=== PATIENT | male | born 1945 | race Caucasian/White ===

== ENCOUNTER → 2016-05-28 | Outpatient (CLI) | payer OTHER ==
[2016-05-28 16:57] LABS: BUN/CREATININE RATIO 21.9 (6-20); CALCIUM 9.5 mg/dL (8.7-10.7); CREATININE 2.1 mg/dL (0.70-1.50); POTASSIUM 5.4 meq/L (3.8-5.2)
== END ==
LOC: MOB LAB 15:45
DX: N18.3 Chronic kidney disease, stage 3 (moderate) (principal)
CPT/HCPCS: 80048

== ENCOUNTER 2016-07-29 16:43 | Inpatient (IN) | payer OTHER ==
[2016-07-29] MEDS ORDERED: ONDANSETRON 4 MG/2 ML VIAL IVP ONE (16:54)
[2016-07-29] MEDS ORDERED: Sodium Chloride 0.9% 1,000 ML PRIMARY IV ONE ×2 (16:54→17:31)
[2016-07-29] MEDS ORDERED: ACETAMINOPHEN 325 MG TABLET PO ONE (16:54)
--- NOTE | 2016-07-29 17:02 | PDOC ---
Gen Adult / Medical Screen HPI - General Chief Complaint: General Medical Stated Complaint: diarrhea, body aches, lethargy Date Seen by Provider: 07/29/16 Time Seen by Provider: 16:56 Source: POSITIVE: Patient Exam Limitations: POSITIVE: No limitations Nurse's Notes Reviewed & Considered: Yes - Indicators Temperature Between 95 and 101 Degrees: Yes Respirations Between 12 and 20: Yes Blood Pressure Between 100-165 (sys) and 60-100 (tadeo): No (95/52) Pulse Range Between 60-105 (100 for age > 60 years): No (115) Severe Pain (Greater than 5/10 Reported): No Chest or Abdominal Pain: Yes Inability to Walk: No Pt Reports Active High Risk Cond. (TB/Hepatitis/HIV/Chemo): No Abnormal Mental Status: No - History of Present Illness Initial Comments: Patient comes in today with chief complaint of abdominal pain and diarrhea. Patient began to develop generalized abdominal pain on Saturday associated with diarrhea. His diarrhea got worse Saturday. He comes in now because of lethargy , subjective fevers, diarrhea with blood present, and abdominal pain. He denies any sore throat, chest pain, shortness of breath. He does have episodes of rapid heart rate, stating that his heart rate was as high as 145 yesterday. He does have nausea but no vomiting. He has subjective fevers and sweats, with associated chills. He denies any rashes. He does have myalgias. Body Location Affected: REPORTS: Abdomen Timing: REPORTS: Constant, Getting Worse Duration: >24 hours Similar Symptoms Previously: No Recent Care Received: REPORTS: Denies Any Prior Injuries Related to Current Complaint?: No - Patient Home Medications Home Medications: Home Medications Aspirin 81 mg ORAL QD #30 tab 12/18/11 Indomethacin 1 cap PO DAILY PRN cap 12/29/12 Cholecalciferol (Vitamin D3) [Vitamin D3] 1 cap PO DAILY cap 11/09/13 Ferrous Sulfate [Iron] 1 cap PO QD #30 cap 05/12/14 Fluticasone Propionate 15.8 ml NS BID #3 inh 06/27/15 Hydrocodone Bit/Acetaminophen [[place] 5-325 Tablet] 1 - 2 tab PO Q6H PRN #30 tab 06/27/15 Atorvastatin Calcium 1 tab PO QHS #90 tab 05/24/16 Doxazosin Mesylate 1 tab PO QHS #90 tab 05/24/16 Prasugrel HCl [Effient] 1 tab PO QD #90 tab 05/24/16 Allopurinol 1 tab PO QD #90 tab 05/29/16 Amlodipine Besylate 1 tab PO QHS #90 tab 05/29/16 Atenolol 1 tab PO QD #90 tab 05/29/16 Budesonide/Formoterol Fumarate [Symbicort] 2 puff INH BID #3 puff 05/29/16 Ezetimibe [Zetia] 1 tab PO QHS #90 tab 05/29/16 Indapamide 2 tab PO QD #180 tab 05/29/16 Olmesartan Medoxomil [Benicar] 0.5 tab PO QD #45 tab 05/29/16 Sodium Bicarbonate 1 tab PO BID #180 tab 05/29/16 Zolpidem Tartrate [Ambien Cr] 1 tab PO QHS PRN #30 tab 06/11/16 Clonidine 1 patch TRANSDERM WEEKLY #12 patch 07/19/16 Colchicine [Mitigare] 1 cap PO QD #90 cap 07/19/16 Levothyroxine Sodium 1 tab PO QD #90 tab 07/19/16 - Patient Allergies Allergies/Adverse Reactions: Allergies Allergy/AdvReac Type Severity Reaction Status Date / Time GIOVANNI Inhibitors AdvReac Intermediate increases Verified 07/29/16 17:01 creat clopidogrel bisulfate AdvReac Intermediate itching Verified 07/29/16 17:01 [From Plavix] niacin AdvReac Intermediate ITCHING Verified 07/29/16 17:01 Past Medical History - heen HEENT History: Hard of Hearing, Dentures/Partials Cardiovascular History: Hypertension, PVD, Hyperlipidemia Additional Cardiovasular History: SUBCLAVIAN ARTERY STENOSIS (RIGHT , BP'S IN LEFT ARM ONLY). INTERMITTENT CLAUDICATION 2007/ RIGHT ILIAC HIGH GRADE STENOSIS , LEFT IS TOTALLY OCCLUDED. ATHEROSCLEROTIC RENAL ARTERY STENOSI 2006, BILATERAL 80% RIGHT AND 50% LEFT. ANGIOPLASTY ANS STENT TO LEFT RENAL ARTERY IN 2011 Respiratory History: Denies History Gastrointestinal History:  Additional Gastrointestinal History: HX OF POLYPS AND ULCERS. GASTRITIS. 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 TONSILLECTOMY Anesthesia Reactions: No Malignant Hyperthermia: No Significant Family History: Heart disease, Cancer ROS - Limitations ROS Limitations: No Limitations Constitution: REPORTS: Chills, Fever, Diaphoresis Cardiovascular: REPORTS: Heart Racing Respiratory: REPORTS: Denies Resp Symptoms Neurological: REPORTS: Denies Neuro Symptoms Gastrointestinal: REPORTS: Abdominal Pain, Nausea, Diarrhea, Bloody Stools Endocrine: REPORTS: Fatigue Musculoskeletal: REPORTS: Muscle Aches Genitourinary: REPORTS: Denies Symptoms Eyes: REPORTS: Denies Symptoms ENT: REPORTS: Denies Symptoms Skin: REPORTS: Denies Skin Symptoms Lympathic: REPORTS: Denies Lympathic Symptoms Immunologic: POSITIVE: Denies Symptoms Psychiatric: POSITIVE: Denies Psych Symptoms Gen Adult/Medical Screen Exam - General Appearance General Appearance: POSITIVE: Alert, Cooperative, No Evidence of Trauma, Mild Distress - HEENT HEENT: POSITIVE: Head Inspection Nml, Eyes Inspection Nml, Ears Inspection Nml, Nose Inspection Nml, PERRL, EOMI - Pupils Pupil Size: 5 mm: Bilateral - Neck Neck: POSITIVE: Normal Inspection, Thyroid Normal - Respiratory Respiratory: POSITIVE: No Respiratory Distress, Breath Sounds Normal, Chest Non- Tender - Cardiovascular Cardiovascular: POSITIVE: Regular Rate & Rhythm, PMI Normal, Tachycardia, Murmur (+3 pansystolic murmur best heard in the right subclavian region) Murmur: Systolic: Grade 3 - Abdomen Abdomen: Soft: (All Quadrants), No Splenomegaly: (All Quadrants), No Hepatomegaly: (All Quadrants), No Guarding: (All Quadrants), No Rebound: (All Quadrants), No Palpable Pulse: (All Quadrants), No Palpabale Mass: (All Quadrants), Tenderness Noted: (All Quadrants), Hyperactive Bowel Sounds: (All Quadrants) - Neurological / Psychological Mental Status: POSITIVE: Mood Normal, Affect Normal Orientation: POSITIVE: Oriented x 3 - Skin Skin: POSITIVE: Normal Color, Warm, Dry, No Rash - Extremities Extremity: Non-Tender: (All Extremities), Normal ROM: (All Extremities), Normal Inspection: (All Extremities), Pelvis Stable: (All Extremities) Gen Adlt/Medical Scrn Progress - Results Reviewed by me Xrays/CTs/US Reviewed by me: Yes Discussed with Radiologist: Yes Lab Results Reviewed: Yes Lab Results:: Laboratory Results 07/29/16 Range/Units 17:00 WBC 7.96 (4.8-10.8) 10^3/uL RBC 2.61 L (4.70-6.10) 10^6/uL Hgb 7.7 L (14.0-18.0) g/dL Hct 24.4 L (42.0-52.0) % MCV 93.5 H (80-90) FL MCH 29.5 (27-31) PG MCHC 31.6 L (33-37) g/dL RDW Std Deviation 49.9 (39-50) fL RDW Coeff of [place] 15.6 H (11.5-14.5) % Plt Count 246 (140-350) 10*3/uL MPV 9.8 (7.4-12.2) FL Immature Gran % (Auto) 0.3 (0-5) % Neut % (Auto) 70.2 (50-80) % Lymph % (Auto) 20.5 (10-50) % [place] % (Auto) 5.4 (5-15) % Eos % (Auto) 3.0 (0-8) % Baso % (Auto) 0.6 (0-1) % Immature Gran # (Auto) 0.02 10*3/UL Neut # (Auto) 5.59 10*3/UL Lymph # (Auto) 1.63 10*3/uL [place] # (Auto) 0.43 (0.3-0.8) 10*3/UL Eos # (Auto) 0.24 10*3/UL Baso # (Auto) 0.05 10*3/UL WBC Morphology Comment Normal morphology (NORM) Plt Morphology Comment Normal morphology (NORM) RBC Morph Comment Normal morphology (NORM) Sodium 139 (135-145) meq/L Potassium 4.8 (3.8-5.2) meq/L Chloride 111 (98-112) meq/L Carbon Dioxide 14 L (23-33) meq/L Anion Gap 14 (5-20) BUN 93 H (7-22) mg/dL Creatinine 3.1 H (0.70-1.50) mg/dL Estimated GFR [employer] BUN/Creatinine Ratio 30.00 H (6-20) Glucose 144 H (78-110) mg/dL Calculated Osmolality 319.0 H (267-292) mOsm/kg Lactic Acid 2.5 H (0.70-2.10) MMOL/L Calcium 9.5 (8.7-10.7) mg/dL Magnesium 1.6 (1.6-2.4) mg/dL Total Bilirubin 0.4 (0.3-1.2) mg/dL AST 28 (21-57) IU/L ALT 22 (21-72) IU/L Alkaline Phosphatase 88 (38-126) IU/L C-Reactive Protein 0.7 (0.0-0.9) mg/dL Total Protein 6.3 (6.1-8.0) g/dL Albumin 3.5 (3.5-4.8) g/dL Globulin 2.8 (2.50-4.10) g/dL Albumin/Globulin Ratio 1.20 L (1.3-2.0) mg/g - Patient's Progress Pain Medication Addressed: POSITIVE: Yes Re-Examine Time: 19:00 Status: POSITIVE: Improved MDM / ED Course: Patient was examined, an IV started, blood drawn and sent to the lab for study, radiographic examinations were obtained. Patient received a bolus of normal saline 2, 1 L each. He also received oral Tylenol, and Zofran. Next Findings: CBC shows white count is normal hemoglobin is 7.7, comprehensive metabolic panel shows creatinine greater than 3, CT scan shows no acute intra- abdominal or intrapelvic abnormalities. Assessment: #1 GI bleed with associated symptomatic anemia, #2 diarrhea related to #1.. Plan: Admission, consider consultation with surgery for lower GI scope. Patient Care Time - Estimated PCT Patient Care Time (In Minutes): 45 Vital Signs - Recent Vital Signs Vital Signs: Vital Signs (Last 8 hours) Temp Pulse Pulse Pulse Pulse Resp BP 07/29/16 19:16 97.2 F 82 22 139/69 07/29/16 19:14 108 H 105 H 109 H 07/29/16 16:49 96.9 F 113 H 16 BP BP BP Pulse Ox 07/29/16 19:16 92 07/29/16 19:14 146/70 160/73 106/58 07/29/16 16:49 93 - VS Reviewed Vital Signs Reviewed: Yes Discharge Clinical Impression: GI bleed Discharge Disposition: Admit to Inpatient Condition: Stable Follow Up With: MATHEUS ALDANA [Primary Care Provider] - Date Decision to Admit to Inpatient: 07/29/16 Time Decision to Admit to Inpatient: 19:11
[2016-07-29 17:15] LABS: BASOPHILS # (AUTO) 0.05 10*3/UL; BASOPHILS % (AUTO) 0.6 % (0-1); EOSINOPHILS # (AUTO) 0.24 10*3/UL; HEMATOCRIT 24.4 % (42.0-52.0); HEMOGLOBIN 7.7 g/dL (14.0-18.0); LYMPHOCYTES # (AUTO) 1.63 10*3/uL; MEAN CORPUSCULAR HEMOGLOBIN 29.5 PG (27-31); MEAN CORPUSCULAR HGB CONC 31.6 g/dL (33-37); MEAN CORPUSCULAR VOLUME 93.5 FL (80-90); MEAN PLATELET VOLUME 9.8 FL (7.4-12.2); MONOCYTES # (AUTO) 0.43 10*3/UL (0.3-0.8); MONOCYTES % (AUTO) 5.4 % (5-15); NEUTROPHILS # (AUTO) 5.59 10*3/UL; NEUTROPHILS % (AUTO) 70.2 % (50-80); RED BLOOD COUNT 2.61 10^6/uL (4.70-6.10)
[2016-07-29 17:26] LABS: BLOOD UREA NITROGEN 93 mg/dL (7-22); C-REACTIVE PROTEIN 0.7 mg/dL (0.0-0.9); CALCIUM 9.5 mg/dL (8.7-10.7); MAGNESIUM 1.6 mg/dL (1.6-2.4); SERUM ALBUMIN 3.5 g/dL (3.5-4.8)
[2016-07-29 17:43] LABS: PLATELET MORPHOLOGY COMMENT NORMAL MORPHOLOGY (NORM); RBC MORPHOLOGY COMMENT NORMAL MORPHOLOGY (NORM); WBC MORPHOLOGY COMMENT NORMAL MORPHOLOGY (NORM)
--- NOTE | 2016-07-29 18:58 | DI ---
HISTORY: Fever. COMPARISON: 12/12/2007. FINDINGS: PA and lateral views of the chest are obtained, and demonstrate clear lungs. The cardiome diastinum and bony thorax are unremarkable. IMPRESSION: 1. Normal chest.
--- NOTE | 2016-07-29 18:58 | DI ---
HISTORY: Abdominal pain, diarrhea and renal insufficiency. COMPARISON: 12/12/2007. TECHNIQUE: Multiple helically acquired CT images were obtained through the abdomen and pelvis withou t contrast. FINDINGS: Examination demonstrates clear lung bases. The liver, gallbladder, spleen, adrenals and pancreas are unremarkable. There is some renal cortical thinning noted without hydronephrosis. The urinary bladder is unremarkable. A few colonic diverticula are noted without evidence of acute diverticulitis. There is no free air n or free fluid. There is no mesenteric nor retroperitoneal lymphadenopathy. Diffuse peripheral vascular disease is noted. Degenerative disc disease is seen predominantly at the L5/S1 level. IMPRESSION: 1. No acute intra-abdominal pathology.
--- NOTE | 2016-07-29 20:11 | PDOC ---
History and Physical - History of Present Illness Date and Time of Service: 07/29/2016 8:30 PM Chief Complaint: Dizziness, diarrhea with black stool and reflux that started 2 days ago History of Present Illness: This is a 71 years old male with medical history significant for history of hypertension, history of gout, chronic renal failure stage III, peripheral vascular disease and multiple stents to the lower limb arteries and history of right and left carotid endarterectomies, history of previous TIAs, history of previous colonic polyp who came into the hospital with history of pain in the abdomen described as reflux, vomiting and diarrhea with black stools and some fresh blood that started on Saturday. He said he went multiple times on Saturday also vomited multiple times was dark yesterday said he stayed in bed, today is been feeling dizzy lightheaded when he stands up and because he's not feeling right and fatigued he came into the ER evaluation in the ER revealed a hemoglobin of 7.7, worsening renal failure and he was positive for guaiac stool. He was given some fluid and was admitted. He feels better he said compared to when he came in. Last time he ate he said was night. He did try to drink some fluids. But he said that cold water did not help and he vomited after that. But he did manage to keep some warm water today. He denied chest pain, shortness of breath. He denied history of ulcers before but he did say that he had some blood transfusion before and was told he was anemic at that time. He was supposed to have a repeat colonoscopy March last year but he did not go to his appointment for no clear reason. He said last week he did having some pain in his gum so he went to the pharmacy and they gave him some medication with aspirin in it she said that he doesn't know the name and he 's been taking it once a day including today. He did not take the rest of his medication today or yesterday. Past Medical History Medical History: 1. Hypertension. 2. Chronic renal failure stage III. 3. History of gout. 4. Peripheral vascular disease status post stenting of the left external and internal iliac arteries and right femoral artery in 2012. Stent in the right anterior tibial and tibioperoneal arteries in 2013, he had interventions to the left renal, left superficial femoral artery and left external iliac artery in 2015. 5. Left renal stenting in 2011. 6. History of TIA. 7. Hearing loss on the left ear. 8. Hyperlipidemia. 9. History of bleeding esophageal ulcer. 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 History of left carotid endarterectomy 2006, history of for right carotid endarterectomy 2007. 2. Left renal stent. 3. Peripheral vascular disease and multiple stenting. 4. History of colonic polyp removal. Pertinent Family History: Father at age 70 of [place], mother from lung cancer. Tobacco Use: Former Smoker Substance Use Type: None Alcohol Use: None Medication / Allergies Home Medications: Home Medications Medication Instructions Recorded Confirmed Type Aspirin 81 mg ORAL QD #30 tab 12/18/11 07/29/16 History Indomethacin 1 cap PO DAILY PRN cap 12/29/12 07/29/16 History Cholecalciferol (Vitamin D3) 1 cap PO DAILY cap 11/09/13 07/29/16 History [Vitamin D3] Ferrous Sulfate [Iron] 1 cap PO QD #30 cap 05/12/14 07/29/16 Clinic Fluticasone Propionate 15.8 ml NS BID #3 inh 06/27/15 07/29/16 Clinic Hydrocodone Bit/Acetaminophen 1 - 2 tab PO Q6H PRN #30 tab 06/27/15 07/29/16 Clinic [[place] 5-325 Tablet] Atorvastatin Calcium 1 tab PO QHS #90 tab 05/24/16 07/29/16 Clinic Doxazosin Mesylate 1 tab PO QHS #90 tab 05/24/16 07/29/16 Clinic Prasugrel HCl [Effient] 1 tab PO QD #90 tab 05/24/16 07/29/16 Clinic Allopurinol 1 tab PO QD #90 tab 05/29/16 07/29/16 Clinic Amlodipine Besylate 1 tab PO QHS #90 tab 05/29/16 07/29/16 Clinic Atenolol 1 tab PO QD #90 tab 05/29/16 07/29/16 Clinic Budesonide/Formoterol Fumarate 2 puff INH BID #3 puff 05/29/16 07/29/16 Clinic [Symbicort] Ezetimibe [Zetia] 1 tab PO QHS #90 tab 05/29/16 07/29/16 Clinic Indapamide 2 tab PO QD #180 tab 05/29/16 07/29/16 Clinic Olmesartan Medoxomil [Benicar] 0.5 tab PO QD #45 tab 05/29/16 07/29/16 Clinic Sodium Bicarbonate 1 tab PO BID #180 tab 05/29/16 07/29/16 Clinic Zolpidem Tartrate [Ambien Cr] 1 tab PO QHS PRN #30 tab 06/11/16 07/29/16 Clinic Clonidine 1 patch TRANSDERM WEEKLY #12 patch 07/19/16 07/29/16 Clinic Colchicine [Mitigare] 1 cap PO QD #90 cap 07/19/16 07/29/16 Clinic Levothyroxine Sodium 1 tab PO QD #90 tab 07/19/16 07/29/16 Clinic Allergies/Adverse Reactions: Allergies Allergy/AdvReac Type Severity Reaction Status Date / Time GIOVANNI Inhibitors AdvReac Intermediate increases Verified 07/29/16 21:14 creat clopidogrel bisulfate AdvReac Intermediate itching Verified 07/29/16 21:14 [From Plavix] niacin AdvReac Intermediate ITCHING Verified 07/29/16 21:14 Review of Systems - Review of Systems All Systems: Reviewed & No Additional Complaints Except as Stated Exam - Vitals Vital Signs: Vital Signs Temperature 97.2 F Temperature Source Temporal Artery Scan Pulse Rate [Pulse Oximeter] 82 Respiratory Rate 22 Blood Pressure [Left Arm] 139/69 Pulse Ox 92 Oxygen Delivery Method Room Air - General General Appearance: POSITIVE: No Acute Distress, Cooperative - Head Head Exam: POSITIVE: Normal Inspection, Ecchymosis - Eye Additional Eye Exam Details: Pale conjunctiva - ENT ENT Exam: POSITIVE: Normal Exam - Neck Neck Exam: POSITIVE: Normal Inspection - Respiratory Respiratory Exam: POSITIVE: Clear to Auscultation - Bilaterally - Cardiovascular Cardiovascular Exam: POSITIVE: RRR, Systolic Murmur - GI/Abdominal GI/Abdominal Exam: POSITIVE: Normal Bowel Sounds, Non Tender, Non Distended, Soft - Rectal Rectal Exam: POSITIVE: Deferred - External Exam: POSITIVE: Deferred - Extremities Extremities Exam: POSITIVE: Normal Inspection - Back Back Exam: POSITIVE: Normal Inspection - Neurological Neurological Exam: POSITIVE: Alert, Oriented x 3, CN II-XII Intact, Moves All Extremities Equally - Psychiatric Psychiatric Exam: POSITIVE: Normal Affect - Integumentary Integumentary Exam: POSITIVE: Dry, Pallor Results - Labs CBC and BMP: 07/29/16 17:00 07/29/16 17:00 - Imaging Status: Report Reviewed by Me (Chest x-ray normal, CT of the abdomen showed no acute intra-abdominal pathology) Assessment and Plan - Patient Problems (1) GI bleed Current Visit: Yes Status: Acute Comment: I think probably secondary to the medication especially with the additional aspirin that he's been taking that caused likely an upper GI bleed. He is normally on the baby aspirin and effient. Last time he took those was Saturday morning. Will continue to hold those medication. Will put him on Protonix loading dose and then Protonix drip. We'll transfuse him with 2 units of blood I already spoke with Dr. Khan he is planning on doing EGD tomorrow. (2) Acute on chronic renal failure Current Visit: Yes Status: Acute Comment: This is secondary to GI bleed, as I said we will give him blood in addition to fluid will repeat his labs in the morning. Hold his diuretics and blood pressure medications for now. (3) Hypothyroidism Current Visit: Yes Status: Acute Comment: Same medications (4) History of gout Current Visit: Yes Status: Acute Comment: Same medications (5) Hypertension Current Visit: Yes Status: Acute Comment: We'll hold his blood pressure medication and see what happens to his blood pressure then decide about timing to restart his medications (6) Metabolic acidosis, normal anion gap (NAG) Current Visit: Yes Status: Acute Comment: Probably secondary to renal failure and diarrhea, he is is normally on sodium bicarbonate will resume that, hopefully with the fluid that would help improve his kidney function and improve the acidosis Photo / Body Diagrams - Uploaded Photos Uploaded Photos:
[2016-07-29] MEDS ORDERED: LIDOCAINE W/ SODIUM BICARB 0.5 ML SYR SUBD PRN (20:35)
[2016-07-29] MEDS ORDERED: ONDANSETRON 4 MG/2 ML VIAL IVP PRN (20:35)
[2016-07-29] MEDS ORDERED: NORMAL SALINE 10 ML SYRINGE FLUSH IVP PRN (20:35)
[2016-07-29] MEDS ORDERED: PANTOPRAZOLE IVP ONE (20:38)
[2016-07-29] MEDS ORDERED: NORMAL SALINE FLUSH IVP ONE (20:38)
[2016-07-29] MEDS ORDERED: Sodium Chloride 0.9% 500 ML PRIMARY IV ONE (20:41)
[2016-07-29 21:35] LABS: BILIRUBIN,URINE NEGATIVE (NEG); COLOR,URINE YELLOW; GLUCOSE, URINE (UA) NEGATIVE (NEG); NITRATE,URINE NEGATIVE (NEG); OCCULT BLOOD,URINE Trace-lysed (NEG); PH,URINE 5.5 (5.0-8.5); PROTEIN,URINE 30 mg/dl (NEG); UROBILINOGEN,URINE 0.2 EU/dL (0.2)
[2016-07-29 21:48] LABS: CLARITY,URINE CLEAR (CLEAR)
[2016-07-29 21:50] LABS: BACTERIA,URINE FEW; RBC,URINE 0-1 /hpf; URINE SAMPLE TYPE CLEAN CATCH URINE
[2016-07-29] MEDS: Sodium Chloride 0.9% 1,000 ML PRIMARY IV SCH (21:51)
[2016-07-30] MEDS ORDERED: ACETAMINOPHEN 325 MG TABLET PO PRN (00:02)
[2016-07-30] MEDS: Sodium Chloride 0.9% 1,000 ML PRIMARY IV SCH ×2 (05:11→06:48)
[2016-07-30] MEDS ORDERED: LEVOTHYROXINE 25 MCG TABLET PO SCH (05:30)
[2016-07-30] MEDS ORDERED: PANTOPRAZOLE IV 40 MG VIAL ONE ×2 (07:20→07:27)
[2016-07-30] MEDS ORDERED: Sodium Chloride 0.9% 100 ML IV ONE ×2 (07:20→07:27)
[2016-07-30 07:31] LABS: BASOPHILS # (AUTO) 0.04 10*3/UL; BASOPHILS % (AUTO) 0.5 % (0-1); EOSINOPHILS % (AUTO) 3.7 % (0-8); HEMATOCRIT 27.1 % (42.0-52.0); HEMOGLOBIN 8.7 g/dL (14.0-18.0); LYMPHOCYTES # (AUTO) 1.34 10*3/uL; MEAN CORPUSCULAR HEMOGLOBIN 29.2 PG (27-31); MEAN CORPUSCULAR HGB CONC 32.1 g/dL (33-37); MEAN CORPUSCULAR VOLUME 90.9 FL (80-90); MEAN PLATELET VOLUME 9.8 FL (7.4-12.2); MONOCYTES # (AUTO) 0.78 10*3/UL (0.3-0.8); MONOCYTES % (AUTO) 9.7 % (5-15); NEUTROPHILS # (AUTO) 5.57 10*3/UL; NEUTROPHILS % (AUTO) 69.1 % (50-80); PLATELET MORPHOLOGY COMMENT NORMAL MORPHOLOGY (NORM); RBC MORPHOLOGY COMMENT NORMAL MORPHOLOGY (NORM); RED BLOOD COUNT 2.98 10^6/uL (4.70-6.10); WBC MORPHOLOGY COMMENT NORMAL MORPHOLOGY (NORM)
[2016-07-30 07:51] LABS: BLOOD UREA NITROGEN 79 mg/dL (7-22); CALCIUM 8.9 mg/dL (8.7-10.7)
--- NOTE | 2016-07-30 08:02 | PDOC(PROG) ---
Date and Time of Service: 07/30/2016 7:55 AM Interval History: Subjective Patient feels better, denying pain, no more bowel movements, no vomiting and no dizziness. Objective : Data - Labs CBC and BMP: 07/30/16 07:20 07/30/16 07:20 Labs - Last 24 Hours: Laboratory Results 07/29/16 07/29/16 07/30/16 Range/Units 20:41 21:33 07:20 WBC 8.06 (4.8-10.8) 10^3/uL RBC 2.98 L (4.70-6.10) 10^6/uL Hgb 8.7 L (14.0-18.0) g/dL Hct 27.1 L (42.0-52.0) % MCV 90.9 H (80-90) FL MCH 29.2 (27-31) PG MCHC 32.1 L (33-37) g/dL RDW Std Deviation 53.1 H (39-50) fL RDW Coeff of [place] 16.8 H (11.5-14.5) % Plt Count 180 (140-350) 10*3/uL MPV 9.8 (7.4-12.2) FL Immature Gran % (Auto) 0.4 (0-5) % Neut % (Auto) 69.1 (50-80) % Lymph % (Auto) 16.6 (10-50) % [place] % (Auto) 9.7 (5-15) % Eos % (Auto) 3.7 (0-8) % Baso % (Auto) 0.5 (0-1) % Immature Gran # (Auto) 0.03 10*3/UL Neut # (Auto) 5.57 10*3/UL Lymph # (Auto) 1.34 10*3/uL [place] # (Auto) 0.78 (0.3-0.8) 10*3/UL Eos # (Auto) 0.30 10*3/UL Baso # (Auto) 0.04 10*3/UL WBC Morphology Comment Normal morphology (NORM) Plt Morphology Comment Normal morphology (NORM) RBC Morph Comment Normal morphology (NORM) Sodium 142 (135-145) meq/L Potassium 4.7 (3.8-5.2) meq/L Chloride 117 H (98-112) meq/L Carbon Dioxide 15 L (23-33) meq/L Anion Gap 10 (5-20) BUN 79 H (7-22) mg/dL Creatinine 2.5 H (0.70-1.50) mg/dL Estimated GFR Animal Science Professor BUN/Creatinine Ratio 31.60 H (6-20) Glucose 85 (78-110) mg/dL Calculated Osmolality 316.0 H (267-292) mOsm/kg Calcium 8.9 (8.7-10.7) mg/dL Ur Collection Type Clean catch urine Urine Color Yellow Urine Clarity Clear (CLEAR) Urine pH 5.5 (5.0-8.5) Ur Specific [place] 1.015 (1.005-1.030) Urine Protein 30 (NEG) mg/dl Urine Glucose (UA) Negative (NEG) mg/dL Urine Ketones Negative (NEG) Urine Occult Blood Trace-lysed H (NEG) Urine Nitrate Negative (NEG) Urine Bilirubin Negative (NEG) Urine Urobilinogen 0.2 (0.2) EU/dL Ur Leukocyte Esterase Negative (NEG) Urine RBC 0-1 (NONE) /hpf Urine WBC None (NONE) Ur Squamous Epith Cells None (NONE) Ur Renal Epithelial Cell None (NONE) Urine Crystals None Urine Bacteria Few (NONE) Urine Casts None (NONE) Urine Mucus Rare (NONE) Urine Trichomonas None (NONE) Urine Yeast None (NONE) Ur Culture Indicated? Culture not set Blood Type O POSITIVE Antibody Screen Negative Crossmatch See Detail Objective : Exam - General General Appearance: No Acute Distress, Cooperative, Obese - Head Head Exam: Normal Inspection, Atraumatic - Eye Eye Exam: Normal Appearance - ENT ENT Exam: Normal Exam - Neck Neck Exam: Normal Inspection - Respiratory Respiratory Exam: Clear to Auscultation - Bilaterally - Cardiovascular Cardiovascular Exam: RRR - GI/Abdominal GI/Abdominal Exam: Normal Bowel Sounds, Non Tender, Soft - Rectal Rectal Exam: Deferred - External Exam: Deferred - Extremities Extremities Exam: Normal Inspection - Back Back Exam: Normal Inspection - Neurological Neurological Exam: Alert, Oriented x 3, CN II-XII Intact, Speech Intact / Clear , Moves All Extremities Equally - Psychiatric Psychiatric Exam: Normal Affect - Integumentary Integumentary Exam: Normal Color Assessment and Plan - Patient Problems (1) GI bleed Current Visit: Yes Status: Acute Comment: Continue Protonix drip, his hemoglobin is 8.7, I think will repeat it again and then will decide if we need to transfuse him. (2) Acute on chronic renal failure Current Visit: Yes Status: Acute Comment: His creatinine is improving, I think we'll continue with IV fluids but because his chloride is rising maybe will switch him D5/half NS instead of the NS. (3) Hypothyroidism Current Visit: Yes Status: Acute Comment: Same med (4) History of gout Current Visit: Yes Status: Acute Comment: Same med (5) Hypertension Current Visit: Yes Status: Acute Comment: We'll continue holding his blood pressure medication except restarting the atenolol (6) Metabolic acidosis, normal anion gap (NAG) Current Visit: Yes Status: Acute Comment: Restarted the sodium bicarbonate. Will switch to D5/ half NS instead of the NS and see whether that would help with acidosis Photo / Body Diagrams - Uploaded Photos Uploaded Photos:
[2016-07-30] MEDS ORDERED: D5-1/2NS 1,000 ML PRIMARY IV SCH (08:45)
[2016-07-30] MEDS ORDERED: BUDESONIDE INH SCH (09:00)
[2016-07-30] MEDS ORDERED: FORMOTEROL FUMARATE INH SCH (09:00)
[2016-07-30] MEDS ORDERED: Sodium Bicarbonate Tab 650 MG TAB PO SCH (09:00)
[2016-07-30] MEDS ORDERED: FLUTICASONE PROPIONATE 16 GRAM (120 SPRAYS / BOTTLE) ENOS SCH (09:00)
[2016-07-30] MEDS ORDERED: ATENOLOL 25 MG TABLET PO SCH (09:00)
[2016-07-30] MEDS ORDERED: ALLOPURINOL 300 MG TABLET PO SCH (09:00)
[2016-07-30] MEDS ORDERED: fentaNYL Inj 100 MCG/2 ML VIAL ONE (09:47)
[2016-07-30] MEDS ORDERED: LIDOCAINE 2% VISCOUS(20 MG/1 ML) - 15 ML UD CUP PO ONE (09:47)
[2016-07-30] MEDS ORDERED: LIDOCAINE HCL/PF 2% (20 MG/ML) - 5 ML SYRINGE ONE (09:47)
[2016-07-30] MEDS ORDERED: MIDAZOLAM 5 MG/1 ML ONE (09:47)
--- NOTE | 2016-07-30 10:15 | GEN.OPNOTE ---
EGD Operative Note Surgery Date: 07/30/16 Preoperative Diagnosis: Upper GI bleed Postoperative Diagnosis: Upper GI bleed Procedure: Esophagogastroduodenoscopy Surgeon: Yo Khan MD Anesthesia Provider: Raghu Mclaughlin CRNA Anesthesia Type: MAC Indications: Patient has acute gastrointestinal hemorrhage. He's been having melanotic stools since July 27. Patient is BUN is up to 92. He has known chronic renal failure. Findings: Esophagus: Olympus video EGD scope into the posterior pharynx. Is guided into the upper esophagus under direct visualization. His esophagus appeared be normal. GE Junction : [place] 40 cm from incisors Fundus : Scope was retroflexed on itself revealing the fundus I do not see any abnormal pathology Body : No ulcers tumors or polyps Prepyloric : Prepyloric area had no ulcers tumors or polyps Small Intestine : First and second portion of the duodenum showed some mild inflammatory changes. I cannot see any ulcerations. In the third and fourth portion of the duodenum there was fresh blood. I did not see any ulcerations. I was limited because I could not advance the scope any further to see if there is any source of the blood. A lubricated flexible upper endoscope was inserted and passed through the esophagus and stomach into the duodenum. Additional Details: At this point I think the patient is bleeding from the third or fourth portion of the duodenum. This blood I see in the duodenum could be refluxing up from further down in the GI tract. I would recommend that we transfer him to a larger facility where they can potentially do arteriogram and localized the bleeding. Also he may need a place that can do a pediatric colonoscope to view the bleeding and potentially stop it. None of these available at our facility.
[2016-07-30 10:58] VITALS: RESP 8; TEMP 98.4
--- NOTE | 2016-07-30 10:58 | DCSUMMARY ---
Hospitalization Summary Admit Date: 07/29/16 Discharge Date: 07/30/16 Hospital Course: Transfer diagnosis 1. Upper GI bleed source unclear 2. Acute on chronic renal failure 3. History of hypertension 4. History of gout 5. History of peripheral vascular disease with multiple stents 6. History of TIA 7. Hyperlipidemia 8. Hypothyroidism 9. History of tubulovillous adenoma 10. History of left renal stent 11. History of previous endarterectomies Hospital course This is a 71 years old male with medical history significant for history of hypertension, history of gout, chronic renal failure stage III, peripheral vascular disease with multiple stent to the lower limb arteries and history of right and left carotid endarterectomy, history of previous TIAs, history of previous colonic polyp who came into the hospital with history of pain in the abdomen described as reflux, vomiting and diarrhea with black stool and some fresh blood that started on Saturday he said he went multiple times on Saturday and also vomited multiple times and it was dark in color. On Saturday he said he stayed in bed, and on the day of admission he was feeling dizzy, lightheaded when he stands up and because of that he came into the ER he was found to be in worsening renal failure with a hemoglobin of 7.7 and he was positive for guaiac stool. Was given fluids and was admitted. CT abdomen was negative for intra- abdominal pathology When I saw him he looked pale but he was feeling better after the fluid boluses. We put him on Protonix drip and transfused with 2 units of blood. His hemoglobin posttransfusion was 8.7. He did report that he was taking extra aspirin [id number] because he was having gum pain in addition to being on the baby aspirin and effient which he last took was Saturday. Today he did have an EGD done which showed fresh blood in the third and fourth portion of the duodenum no ulceration were found. Dr. Khan suggested that I transfer the patient either for an angiography or an evaluation by GI with a pediatric colonoscopy. I spoke with Dr. Bowie and Dr. Graham and the copper miner at [facility] and they accepted the patient and the patient will be transferred. I did discuss that with the patient and agreed on transfer. Laboratory Results 07/29/16 07/29/16 07/29/16 Range/Units 17:00 20:41 21:33 WBC 7.96 (4.8-10.8) 10^3/uL RBC 2.61 L (4.70-6.10) 10^6/uL Hgb 7.7 L (14.0-18.0) g/dL Hct 24.4 L (42.0-52.0) % MCV 93.5 H (80-90) FL MCH 29.5 (27-31) PG MCHC 31.6 L (33-37) g/dL RDW Std Deviation 49.9 (39-50) fL RDW Coeff of Dee Dee 15.6 H (11.5-14.5) % Plt Count 246 (140-350) 10*3/uL MPV 9.8 (7.4-12.2) FL Immature Gran % (Auto) 0.3 (0-5) % Neut % (Auto) 70.2 (50-80) % Lymph % (Auto) 20.5 (10-50) % Steele % (Auto) 5.4 (5-15) % Eos % (Auto) 3.0 (0-8) % Baso % (Auto) 0.6 (0-1) % Immature Gran # (Auto) 0.02 10*3/UL Neut # (Auto) 5.59 10*3/UL Lymph # (Auto) 1.63 10*3/uL Steele # (Auto) 0.43 (0.3-0.8) 10*3/UL Eos # (Auto) 0.24 10*3/UL Baso # (Auto) 0.05 10*3/UL WBC Morphology Comment Normal morphology (NORM) Plt Morphology Comment Normal morphology (NORM) RBC Morph Comment Normal morphology (NORM) Sodium 139 (135-145) meq/L Potassium 4.8 (3.8-5.2) meq/L Chloride 111 (98-112) meq/L Carbon Dioxide 14 L (23-33) meq/L Anion Gap 14 (5-20) BUN 93 H (7-22) mg/dL Creatinine 3.1 H (0.70-1.50) mg/dL Estimated GFR Print Binding And Finishing Worker BUN/Creatinine Ratio 30.00 H (6-20) Glucose 144 H (78-110) mg/dL Calculated Osmolality 319.0 H (267-292) mOsm/kg Lactic Acid 2.5 H (0.70-2.10) MMOL/L Calcium 9.5 (8.7-10.7) mg/dL Magnesium 1.6 (1.6-2.4) mg/dL Total Bilirubin 0.4 (0.3-1.2) mg/dL AST 28 (21-57) IU/L ALT 22 (21-72) IU/L Alkaline Phosphatase 88 (38-126) IU/L C-Reactive Protein 0.7 (0.0-0.9) mg/dL Total Protein 6.3 (6.1-8.0) g/dL Albumin 3.5 (3.5-4.8) g/dL Globulin 2.8 (2.50-4.10) g/dL Albumin/Globulin Ratio 1.20 L (1.3-2.0) mg/g Ur Collection Type Clean catch urine Urine Color Yellow Urine Clarity Clear (CLEAR) Urine pH 5.5 (5.0-8.5) Ur Specific [place] 1.015 (1.005-1.030) Urine Protein 30 (NEG) mg/dl Urine Glucose (UA) Negative (NEG) mg/dL Urine Ketones Negative (NEG) Urine Occult Blood Trace-lysed H (NEG) Urine Nitrate Negative (NEG) Urine Bilirubin Negative (NEG) Urine Urobilinogen 0.2 (0.2) EU/dL Ur Leukocyte Esterase Negative (NEG) Urine RBC 0-1 (NONE) /hpf Urine WBC None (NONE) Ur Squamous Epith Cells None (NONE) Ur Renal Epithelial Cell None (NONE) Urine Crystals None Urine Bacteria Few (NONE) Urine Casts None (NONE) Urine Mucus Rare (NONE) Urine Trichomonas None (NONE) Urine Yeast None (NONE) Ur Culture Indicated? Culture not set Blood Type O POSITIVE Antibody Screen Negative Crossmatch See Detail 07/30/16 Range/Units 07:20 WBC 8.06 (4.8-10.8) 10^3/uL RBC 2.98 L (4.70-6.10) 10^6/uL Hgb 8.7 L (14.0-18.0) g/dL Hct 27.1 L (42.0-52.0) % MCV 90.9 H (80-90) FL MCH 29.2 (27-31) PG MCHC 32.1 L (33-37) g/dL RDW Std Deviation 53.1 H (39-50) fL RDW Coeff of Dee Dee 16.8 H (11.5-14.5) % Plt Count 180 (140-350) 10*3/uL MPV 9.8 (7.4-12.2) FL Immature Gran % (Auto) 0.4 (0-5) % Neut % (Auto) 69.1 (50-80) % Lymph % (Auto) 16.6 (10-50) % Steele % (Auto) 9.7 (5-15) % Eos % (Auto) 3.7 (0-8) % Baso % (Auto) 0.5 (0-1) % Immature Gran # (Auto) 0.03 10*3/UL Neut # (Auto) 5.57 10*3/UL Lymph # (Auto) 1.34 10*3/uL Steele # (Auto) 0.78 (0.3-0.8) 10*3/UL Eos # (Auto) 0.30 10*3/UL Baso # (Auto) 0.04 10*3/UL WBC Morphology Comment Normal morphology (NORM) Plt Morphology Comment Normal morphology (NORM) RBC Morph Comment Normal morphology (NORM) Sodium 142 (135-145) meq/L Potassium 4.7 (3.8-5.2) meq/L Chloride 117 H (98-112) meq/L Carbon Dioxide 15 L (23-33) meq/L Anion Gap 10 (5-20) BUN 79 H (7-22) mg/dL Creatinine 2.5 H (0.70-1.50) mg/dL Estimated GFR Print Binding And Finishing Worker BUN/Creatinine Ratio 31.60 H (6-20) Glucose 85 (78-110) mg/dL Calculated Osmolality 316.0 H (267-292) mOsm/kg Lactic Acid (0.70-2.10) MMOL/L Calcium 8.9 (8.7-10.7) mg/dL Magnesium (1.6-2.4) mg/dL Total Bilirubin (0.3-1.2) mg/dL AST (21-57) IU/L ALT (21-72) IU/L Alkaline Phosphatase (38-126) IU/L C-Reactive Protein (0.0-0.9) mg/dL Total Protein (6.1-8.0) g/dL Albumin (3.5-4.8) g/dL Globulin (2.50-4.10) g/dL Albumin/Globulin Ratio (1.3-2.0) mg/g Ur Collection Type Urine Color Urine Clarity (CLEAR) Urine pH (5.0-8.5) Ur Specific [place] (1.005-1.030) Urine Protein (NEG) mg/dl Urine Glucose (UA) (NEG) mg/dL Urine Ketones (NEG) Urine Occult Blood (NEG) Urine Nitrate (NEG) Urine Bilirubin (NEG) Urine Urobilinogen (0.2) EU/dL Ur Leukocyte Esterase (NEG) Urine RBC (NONE) /hpf Urine WBC (NONE) Ur Squamous Epith Cells (NONE) Ur Renal Epithelial Cell (NONE) Urine Crystals Urine Bacteria (NONE) Urine Casts (NONE) Urine Mucus (NONE) Urine Trichomonas (NONE) Urine Yeast (NONE) Ur Culture Indicated? Blood Type Antibody Screen Crossmatch Discharge instruction Diet nothing by mouth Activity bedrest Medications Active Medications Acetaminophen (Tylenol) 650 mg PO Q6H PRN PRN Reason: Pain Allopurinol (Zyloprim) 300 mg PO DAILY [facility] Last Admin: 07/30/16 10:56 Dose: Not Given Atorvastatin Calcium (Lipitor) 80 mg PO BEDTIME TRAV Ezetimibe (Zetia) 10 mg PO BEDTIME [facility] Fluticasone Propionate (Flonase Nasal Gregory 0.05%) 1 sprays ARUNA BID [facility] Last Admin: 07/30/16 10:56 Dose: Not Given Sodium Chloride (Normal Saline 0.9%) 25 mls @ 200 mls/hr IV .Post Infusion PRN PRN Reason: No Primary IV for Flush ONLY Pantoprazole Sodium 80 mg/ (Sodium Chloride) 80 mls @ 8 mls/hr IV CONT TRAV PRN Reason: 8 MG/HR Last Admin: 07/30/16 07:32 Dose: 8 mls/hr Sodium Chloride (Normal Saline) 1,000 mls @ 125 mls/hr PRIMARY IV .Q8H [facility] Levothyroxine Sodium (Synthroid) 25 mcg PO DAILY@0530 [facility] Last Admin: 07/30/16 05:30 Dose: 25 mcg Lidocaine HCl (Lidocaine Buffered Inj) 0.5 ml SUBD ONCE PRN PRN Reason: IV Starts Nf-(Budesonide/Formoterol Fumarate [Symbicort 80/4.5] 2 Puff) 2 puff INH BID [facility] Last Admin: 07/30/16 10:56 Dose: Not Given Ondansetron HCl (Zofran Inj) 4 mg IVP Q4H PRN PRN Reason: NAUSEA / VOMITING Sodium Bicarbonate (Sodium Bicarbonate) 650 mg PO BID [facility] Last Admin: 07/30/16 10:56 Dose: Not Given Sodium Chloride (Saline Flush) 5 - 20 ml IVP BID PRN PRN Reason: Flush Follow-up per [facility] post discharge Exam - Vitals Vital Signs: Vital Signs Temperature 97.9 F Temperature Source Temporal Artery Scan Pulse Rate [Apical] 78 Pulse Rate [Pulse Oximeter] 78 Pulse Rate 67 Respiratory Rate 14 Blood Pressure [Left Calf] 121/36 Blood Pressure [Left Arm] 150/74 Blood Pressure 140/81 Pulse Ox 98 Oxygen Flow Rate 1L Oxygen Flow Rate 4 Oxygen Delivery Method Nasal Cannula Height 6 ft Weight 210 lb Patient Problems - Patient Problem List (1) GI bleed Current Visit: Yes Status: Acute (2) Acute on chronic renal failure Current Visit: Yes Status: Acute (3) Hypothyroidism Current Visit: Yes Status: Acute (4) History of gout Current Visit: Yes Status: Acute (5) Hypertension Current Visit: Yes Status: Acute (6) Metabolic acidosis, normal anion gap (NAG) Current Visit: Yes Status: Acute
[2016-07-30] MEDS ORDERED: Sodium Chloride 0.9% 1,000 ML PRIMARY IV SCH (11:00)
[2016-07-30] MEDS ORDERED: ATORVASTATIN 40 MG TABLET PO SCH (21:00)
[2016-07-30] MEDS ORDERED: EZETIMIBE 10 MG TABLET PO SCH (21:00)
== END 2016-07-30 11:34 | disposition short-term general hospital (02) | DRG 378 ==
LOC: ER 16:43 → ICU 19:14
PROVIDERS: ADMIT Internal Medicine; ATTEND Internal Medicine
PROC: 30233N1 Transfusion of Nonautologous Red Blood Cells into Peripheral Vein, Percutaneous Approach (ICD-10-PCS; 2016-07-30)
PROC: 0DJ08ZZ Inspection of Upper Intestinal Tract, Via Natural or Artificial Opening Endoscopic (ICD-10-PCS; principal; 2016-07-30 11:00)
DX: K92.2 Gastrointestinal hemorrhage, unspecified (principal); N17.9 Acute kidney failure, unspecified; E87.2 Acidosis; I10 Essential (primary) hypertension; Z86.73 Personal history of transient ischemic attack (TIA), and cerebral infarction without residual deficits; E78.5 Hyperlipidemia, unspecified; E03.9 Hypothyroidism, unspecified; N18.3 Chronic kidney disease, stage 3 (moderate)
CPT/HCPCS: 36415; 36430; 71020; 74176; 80048; 80053; 81001; 81003; 83605; 83735; 85025; 86140; 86850; 86900; 86901; 86922; 87040; 87804; 99284; J2001; J2250; J2405; J3010; J3490; J7030; J7040; J7050; P9016

== ENCOUNTER → 2016-08-09 | Outpatient (CLI) | payer OTHER ==
--- NOTE | 2016-08-09 11:21 | DI ---
LEFT KNEE, 08/09/2016 10:46 AM: Clinical History: Left knee pain. Previous Exam: 09/29/2014. 4 views are submitted. The AP and tunnel projections are weight bearing views. There is no acute soft tissue, osseous, or joint abnormality. There is at most minimal narrowing of the medial compartment. Reading: Mild degenerative arthritic change of the medial compartment.
== END ==
LOC: ORTHO 11:34
PROVIDERS: ATTEND Physician Assistant
DX: M25.562 Pain in left knee (principal); M17.12 Unilateral primary osteoarthritis, left knee
CPT/HCPCS: 73564

== ENCOUNTER → 2016-08-14 | Outpatient (CLI) | payer OTHER ==
[2016-08-14 17:22] LABS: BASOPHILS # (AUTO) 0.03 10*3/UL; BASOPHILS % (AUTO) 0.4 % (0-1); EOSINOPHILS # (AUTO) 0.22 10*3/UL; EOSINOPHILS % (AUTO) 2.9 % (0-8); HEMATOCRIT 27.1 % (42.0-52.0); HEMOGLOBIN 8.2 g/dL (14.0-18.0); LYMPHOCYTES # (AUTO) 1.43 10*3/uL; MEAN CORPUSCULAR HEMOGLOBIN 27.4 PG (27-31); MEAN CORPUSCULAR HGB CONC 30.3 g/dL (33-37); MEAN CORPUSCULAR VOLUME 90.6 FL (80-90); MONOCYTES # (AUTO) 0.67 10*3/UL (0.3-0.8); MONOCYTES % (AUTO) 8.8 % (5-15); NEUTROPHILS # (AUTO) 5.25 10*3/UL; RED BLOOD COUNT 2.99 10^6/uL (4.70-6.10)
[2016-08-14 17:23] LABS: PLATELET MORPHOLOGY COMMENT NORMAL MORPHOLOGY (NORM); RBC MORPHOLOGY COMMENT NORMAL MORPHOLOGY (NORM); WBC MORPHOLOGY COMMENT NORMAL MORPHOLOGY (NORM)
[2016-08-14 17:37] LABS: BLOOD UREA NITROGEN 55 mg/dL (7-22); BUN/CREATININE RATIO 22.91 (6-20); SERUM ALBUMIN 3.4 g/dL (3.5-4.8)
== END ==
LOC: MOB LAB 16:35
DX: K29.70 Gastritis, unspecified, without bleeding (principal); I10 Essential (primary) hypertension; E78.5 Hyperlipidemia, unspecified
CPT/HCPCS: 36415; 80053; 85025

== ENCOUNTER → 2016-09-17 | Outpatient (CLI) | payer OTHER ==
[2016-09-17 13:21] LABS: BASOPHILS # (AUTO) 0.04 10*3/UL; BASOPHILS % (AUTO) 0.7 % (0-1); EOSINOPHILS % (AUTO) 6.6 % (0-8); HEMOGLOBIN 10.1 g/dL (14.0-18.0); LYMPHOCYTES # (AUTO) 1.38 10*3/uL; MEAN CORPUSCULAR HEMOGLOBIN 28.1 PG (27-31); MEAN CORPUSCULAR HGB CONC 30.6 g/dL (33-37); MEAN CORPUSCULAR VOLUME 91.7 FL (80-90); MEAN PLATELET VOLUME 10.1 FL (7.4-12.2); MONOCYTES # (AUTO) 0.65 10*3/UL (0.3-0.8); MONOCYTES % (AUTO) 10.8 % (5-15); NEUTROPHILS # (AUTO) 3.55 10*3/UL; NEUTROPHILS % (AUTO) 58.8 % (50-80)
[2016-09-17 13:27] LABS: BLOOD UREA NITROGEN 35 mg/dL (7-22); CALCIUM 8.8 mg/dL (8.7-10.7); PHOSPHORUS 3.7 mg/dl (2.4-4.3)
[2016-09-17 13:31] LABS: PLATELET MORPHOLOGY COMMENT NORMAL MORPHOLOGY (NORM); RBC MORPHOLOGY COMMENT NORMAL MORPHOLOGY (NORM); WBC MORPHOLOGY COMMENT NORMAL MORPHOLOGY (NORM)
== END ==
LOC: MOB LAB 11:10
DX: I73.9 Peripheral vascular disease, unspecified (principal); I12.9 Hypertensive chronic kidney disease with stage 1 through stage 4 chronic kidney disease, or unspecified chronic kidney disease; N18.3 Chronic kidney disease, stage 3 (moderate); D64.9 Anemia, unspecified; D12.6 Benign neoplasm of colon, unspecified; I70.1 Atherosclerosis of renal artery; M10.9 Gout, unspecified; I67.9 Cerebrovascular disease, unspecified; E78.5 Hyperlipidemia, unspecified; E55.9 Vitamin D deficiency, unspecified; E03.9 Hypothyroidism, unspecified
CPT/HCPCS: 36415; 80048; 84100; 85025; G0463

== ENCOUNTER → 2016-09-27 | Outpatient (CLI) | payer OTHER ==
--- NOTE | 2016-09-27 15:06 | DI ---
VENOUS DOPPLER ULTRASOUND OF BOTH LOWER EXTREMITIES, 09/27/2016 1:44 PM: Clinical History: Bilateral lower extremity swelling. Previous Exam: None at this facility. Technique: 2D real-time imaging is supplemented with color Doppler ultrasound. Compression and augmen tation maneuvers were performed. The deep venous system from the groin to the popliteal fossa for both legs is normal. The long saphen ous veins are also normal. Reading: Negative venous Doppler ultrasound of both lower extremities for deep vein thrombosis.
== END ==
LOC: US 13:32
DX: R60.0 Localized edema (principal)
CPT/HCPCS: 93970

== ENCOUNTER → 2016-11-09 | Outpatient (CLI) | payer OTHER ==
[2016-11-09 13:08] LABS: BLOOD UREA NITROGEN 39 mg/dL (7-22); BUN/CREATININE RATIO 18.57 (6-20); CALCIUM 9.7 mg/dL (8.7-10.7); URIC ACID 10.3 mg/dl (3.8-8.5)
[2016-11-09 15:22] LABS: HEMATOCRIT 40.1 % (42.0-52.0); HEMOGLOBIN 12.9 g/dL (14.0-18.0); MEAN CORPUSCULAR HEMOGLOBIN 28.6 PG (27-31); MEAN CORPUSCULAR HGB CONC 32.2 g/dL (33-37); MEAN CORPUSCULAR VOLUME 88.9 FL (80-90); RED BLOOD COUNT 4.51 10^6/uL (4.70-6.10)
[2016-11-09 15:23] LABS: BASOPHILS # (AUTO) 0.06 10*3/UL; BASOPHILS % (AUTO) 0.9 % (0-1); EOSINOPHILS # (AUTO) 0.33 10*3/UL; EOSINOPHILS % (AUTO) 4.8 % (0-8); MEAN PLATELET VOLUME 10.3 FL (7.4-12.2); MONOCYTES # (AUTO) 0.76 10*3/UL (0.3-0.8); MONOCYTES % (AUTO) 11.1 % (5-15); NEUTROPHILS # (AUTO) 4.08 10*3/UL; NEUTROPHILS % (AUTO) 59.7 % (50-80); PLATELET MORPHOLOGY COMMENT NORMAL MORPHOLOGY (NORM); RBC MORPHOLOGY COMMENT NORMAL MORPHOLOGY (NORM); WBC MORPHOLOGY COMMENT NORMAL MORPHOLOGY (NORM)
== END ==
LOC: MOB LAB 11:38
DX: I70.1 Atherosclerosis of renal artery (principal); M1A.30X0 Chronic gout due to renal impairment, unspecified site, without tophus (tophi); N18.9 Chronic kidney disease, unspecified; D64.9 Anemia, unspecified
CPT/HCPCS: 36415; 80048; 84550; 85025

== ENCOUNTER 2017-12-09 13:40 | Observation (INO) ==
[2017-12-09] MEDS ORDERED: ONDANSETRON 4 MG/2 ML VIAL IVP ONE (13:52)
[2017-12-09] MEDS ORDERED: Sodium Chloride 0.9% 1,000 ML PRIMARY IV ONE (13:52)
[2017-12-09] MEDS ORDERED: PANTOPRAZOLE IV 40 MG VIAL IVP ONE (13:53)
--- NOTE | 2017-12-09 14:01 | PDOC ---
GI Bleed/Rectal Complaint HPI - General Chief Complaint: GI Bleed / Rectal Pain Stated Complaint: I THINK I'M BLEEDING IN MY INTESTINES Date Seen by Provider: 12/09/17 Time Seen by Provider: 13:50 Source: POSITIVE: Patient Exam Limitations: POSITIVE: No limitations Nurse's Notes Reviewed & Considered: Yes - History of Present Illness Initial Comments: The patient is a 72-year-old male who presents to the emergency department with fatigue, epigastric abdominal pain and black stools. The patient states he's been feeling more tired than usual the past couple of days. He has developed some epigastric abdominal pain and today has had 4 loose stools that were pretty much black. He does have a history of previous GI bleed in July 2016 for which he did receive blood transfusion and eventually required transfer to [facility] for endoscopy and cauterization. He denies fevers or chills or any other associated symptoms. He does not take any blood thinner medicines currently other than aspirin. - Patient Home Medications Home Medications: Home Medications Colchicine [Mitigare] 1 cap PO QD #90 cap 11/09/16 Zolpidem Tartrate [Ambien Cr] 1 tab PO QHS #30 tab 11/09/16 aspirin 81 mg tablet,delayed release 81 mg PO QDAY #30 tab 01/31/17 ferrous sulfate ER 325 mg (65 mg iron) capsule,extended release 325 mg PO QDAY # 30 cap 01/31/17 hydrocodone 5 mg-acetaminophen 325 mg tablet 1 - 2 tab PO Q6H PRN #30 tab olmesartan 20 mg tablet 20 mg PO QDAY #90 tab 04/22/17 levothyroxine 25 mcg tablet 25 mcg PO QDAY #90 tab 05/14/17 rosuvastatin 40 mg tablet 40 mg PO QPM #90 tab 05/14/17 allopurinol 300 mg tablet 300 mg PO QDAY #90 tab 06/06/17 zolpidem ER 12.5 mg tablet,extended release,multiphase 12.5 mg PO QHS #90 tab budesonide-formoterol HFA 80 mcg-4.5 mcg/actuation aerosol inhaler 2 puff INH BID #360 puff 07/10/17 cholecalciferol (vitamin D3) 5,000 unit capsule 5,000 unit PO QDAY #90 cap 07/10 ezetimibe 10 mg tablet 10 mg PO QHS #90 tab 07/10/17 fluticasone 50 mcg/actuation nasal spray,suspension 1 spray INASL QD PRN #3 g prasugrel 10 mg tablet 10 mg PO QDAY #90 tab 07/10/17 sodium bicarbonate 650 mg tablet 1,300 mg PO QDAY #180 tab 07/10/17 pantoprazole 40 mg tablet,delayed release 40 mg PO BID #180 tab 07/17/17 atenolol 25 mg tablet 25 mg PO QDAY #180 tab 08/16/17 furosemide 20 mg tablet 20 mg PO QDAY #30 tab 08/19/17 indapamide 2.5 mg tablet 5 mg PO QDAY #60 tab 11/20/17 colchicine 0.6 mg capsule 0.6 mg PO QDAY #90 cap 12/02/17 - Patient Allergies Allergies/Adverse Reactions: Allergies 3 Allergy/AdvReac Type Severity Reaction Status Date / Time GIOVANNI Inhibitors AdvReac Intermediate increases Verified 12/09/17 13:49 creat clopidogrel bisulfate AdvReac Intermediate itching Verified 12/09/17 13:49 [From Plavix] niacin AdvReac Intermediate ITCHING Verified 12/09/17 13:49 Past Medical History - heen HEENT History: Hard of Hearing, Dentures/Partials Cardiovascular History: Hypertension, PVD, Hyperlipidemia Additional Cardiovasular History: SUBCLAVIAN ARTERY STENOSIS (RIGHT , BP'S IN LEFT ARM ONLY). INTERMITTENT CLAUDICATION 2007/ RIGHT ILIAC HIGH GRADE STENOSIS , LEFT IS TOTALLY OCCLUDED. ATHEROSCLEROTIC RENAL ARTERY STENOSI 2006, BILATERAL 80% RIGHT AND 50% LEFT. ANGIOPLASTY ANS STENT TO LEFT RENAL ARTERY IN 2011 Respiratory History: Denies History Gastrointestinal History: GI Bleed Additional Gastrointestinal History: HX OF POLYPS AND ULCERS. GASTRITIS. 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 Blood Disorders: Anemia Psychiatric History: Denies History History of Sexually Transmitted Diseases: No Male Reproductive History: Denies History Cancer History: Denies History In Past Year Been Physically Harmed or Verbally Threatened: No History of MDRO: No History of Other Communicable Diseases: No Tobacco Use: Former Smoker Alcohol Use: Sober In the Past 12 Months, Have Used or Abuse Any Substance: None Previous Surgical History: Yes Type / Date of Surgery: SEPTEMBER 2011 ANGIOPLASTY/ NOVEMBER 2011 ANGIOPLASTY RIGHT EXTERNAL ILLIAC ARTERY/ CAROTID ENDARTERECTOMY LEFT / RIGHT 08/ COLONOSCOPY/ HEMORRHOID REPAIR/ LEFT URETERAL STENOSIS REPAIR/ ROTOBLATOR ENDARTERECTOMY RIGHT COMMON FEMORAL ARTERY 11/2011. TONSILLECTOMY Anesthesia Reactions: No Malignant Hyperthermia: No Significant Family History: Heart disease, Cancer Past Medical History Reviewed: Reviewed - No Changes ROS - Limitations ROS Limitations: No Limitations Constitution: DENIES: Chills, Fever Cardiovascular: REPORTS: Denies Cardiac Symptoms Respiratory: REPORTS: Denies Resp Symptoms Neurological: REPORTS: Denies Neuro Symptoms Gastrointestinal: REPORTS: Abdominal Pain (Primarily upper mid abdomen), Nausea , Diarrhea, Black Stools. DENIES: Vomitting, Bloody Stools, Constipation Endocrine: REPORTS: Fatigue Musculoskeletal: REPORTS: Denies MS Symptoms Eyes: REPORTS: Denies Symptoms ENT: REPORTS: Denies Symptoms Skin: DENIES: Rash GI Bleed / Rectal Complaint PE - General Appearance General Appearance: POSITIVE: Alert, Cooperative, No Acute Distress - HEENT HEENT: POSITIVE: Head Inspection Nml, Eyes Inspection Nml, Ears Inspection Nml, Nose Inspection Nml, Pharynx Inspect. Nml - Neck Neck: POSITIVE: Normal Inspection. NEGATIVE: Lymphadenopathy - Respiratory Respiratory: POSITIVE: No Respiratory Distress, Breath Sounds Normal - Cardiovascular Cardiovascular: POSITIVE: Regular Rate and Rhythm, Heart Sounds Normal Peripheral Pulses: Dorsalis-pedis (R): 2+, Dorsalis-pedis (L): 2+ - Abdomen Abdomen: Soft: (All Quadrants), Normal Bowel Sounds: (All Quadrants), No Guarding: (All Quadrants), No Rebound: (All Quadrants) Additional Abdomen Details: Some tenderness in the epigastric and left upper quadrants without guarding or rebound tenderness, no palpable mass - Skin Skin: POSITIVE: Pallor - Extremities Extremity: Normal ROM: (All Extremities), Normal Inspection: (All Extremities) - Neurological / Psychological Neurological: POSITIVE: Oriented X3, rental car deliverer Normal As Tested, Motor Normal, Sensation Normal GI Bleed / Rectal Progress - Results Reviewed by me Xrays/CTs/US Reviewed by me: Yes Discussed with Radiologist: Yes Radiology Findings: CT scan of the abdomen and pelvis shows no acute intra- abdominal pathology. Lab Results Reviewed by Me: Yes Lab Results:: Laboratory Results 3 12/09/17 12/09/17 12/09/17 14:00 14:00 14:00 WBC 5.37 RBC 3.79 L Hgb 11.6 L Hct 34.3 L MCV 90.5 H MCH 30.6 MCHC 33.8 RDW Std Deviation 44.4 RDW Coeff of [place] 14.2 Plt Count 215 MPV 9.1 Immature Gran % (Auto) 0.2 Neut % (Auto) 65.8 Lymph % (Auto) 24.8 Hall % (Auto) 6.0 Eos % (Auto) 2.8 Baso % (Auto) 0.4 Immature Gran # (Auto) 0.01 Neut # (Auto) 3.54 Lymph # (Auto) 1.33 Hall # (Auto) 0.32 Eos # (Auto) 0.15 Baso # (Auto) 0.02 WBC Morphology Comment Normal morphology Plt Morphology Comment Normal morphology RBC Morph Comment Normal morphology PT INR APTT Sodium 140 Potassium 4.2 Chloride 113 H Carbon Dioxide 18 L Anion Gap 9 BUN 48 H Creatinine 2.8 H Estimated GFR Radiation Protection Technician BUN/Creatinine Ratio 17.14 Glucose 121 H Calculated Osmolality 303.0 H Calcium 9.4 Magnesium 1.5 L Total Bilirubin 0.3 AST 133 H ALT 230 H Alkaline Phosphatase 149 H C-Reactive Protein < 0.5 Total Protein 6.6 Albumin 3.6 Globulin 3.0 Albumin/Globulin Ratio 1.20 L Amylase Lipase Blood Type O POSITIVE Antibody Screen Negative Crossmatch See Detail 3 12/09/17 12/09/17 14:00 14:00 WBC RBC Hgb Hct MCV MCH MCHC RDW Std Deviation RDW Coeff of Dee Dee Plt Count MPV Immature Gran % (Auto) Neut % (Auto) Lymph % (Auto) Hall % (Auto) Eos % (Auto) Baso % (Auto) Immature Gran # (Auto) Neut # (Auto) Lymph # (Auto) Hall # (Auto) Eos # (Auto) Baso # (Auto) WBC Morphology Comment Plt Morphology Comment RBC Morph Comment PT 12.3 H INR 1.19 APTT 29.3 Sodium Potassium Chloride Carbon Dioxide Anion Gap BUN Creatinine Estimated GFR BUN/Creatinine Ratio Glucose Calculated Osmolality Calcium Magnesium Total Bilirubin AST ALT Alkaline Phosphatase C-Reactive Protein Total Protein Albumin Globulin Albumin/Globulin Ratio Amylase 118 H Lipase 490 H Blood Type Antibody Screen Crossmatch CBC and BMP: 12/10/17 04:11 12/10/17 04:11 - Patient's Progress MDM / ED Course: An IV was established and patient was typed and crossed for 2 units packed red blood cells. His blood pressure and pulse were normal on arrival. He was given Protonix 80 mg IV and started on a Protonix drip at 80 mg over 10 hours. Blood work reveals that he is slightly anemic with a hemoglobin of 11.6. His white count is normal. Pancreas enzymes are slightly elevated with a lipase of 490. His creatinine is 2.8 and it looks like his baseline is somewhere around 2.5. The patient presents with melena with a history of GI bleeding. Dr. Abreu was consulted from general surgery and plans to take the patient for EGD. Dr. Stark was also contacted for admission. - Consult Counseled: POSITIVE: Patient, RE: Lab Results, RE: Radiology Results, RE: DX, RE : Need for F/U Patient Care Time - Estimated PCT Patient Care Time (In Minutes): 35 Vital Signs - Recent Vital Signs Vital Signs: Vital Signs (Last 8 hours) Temp Pulse Resp BP Pulse Ox 12/10/17 04:38 92 12/10/17 04:23 98.3 F 66 16 148/64 95 12/09/17 23:57 98.0 F 61 16 167/61 96 12/09/17 22:41 97.6 F 66 16 162/65 95 - VS Reviewed Vital Signs Reviewed: Yes Discharge Clinical Impression: Elevated pancreatic enzyme, GI bleed, Anemia, Chronic renal failure Discharge Disposition: Admit to Inpatient Condition: Fair Date Decision to Admit to Inpatient: 12/09/17 Time Decision to Admit to Inpatient: 17:00
[2017-12-09 14:08] LABS: BASOPHILS # (AUTO) 0.02 10*3/UL; BASOPHILS % (AUTO) 0.4 % (0-1); EOSINOPHILS # (AUTO) 0.15 10*3/UL; EOSINOPHILS % (AUTO) 2.8 % (0-8); Hematocrit [HCT] 34.3 % (42.0-52.0); Hemoglobin [HGB] 11.6 g/dL (14.0-18.0); LYMPHOCYTES # (AUTO) 1.33 10*3/uL; MEAN CORPUSCULAR HEMOGLOBIN 30.6 PG (27-31); MEAN CORPUSCULAR HGB CONC 33.8 g/dL (33-37); MEAN CORPUSCULAR VOLUME 90.5 FL (80-90); MEAN PLATELET VOLUME 9.1 FL (7.4-12.2); MONOCYTES # (AUTO) 0.32 10*3/UL (0.3-0.8); NEUTROPHILS # (AUTO) 3.54 10*3/UL; NEUTROPHILS % (AUTO) 65.8 % (50-80); RED BLOOD COUNT 3.79 10^6/uL (4.70-6.10)
[2017-12-09 14:09] LABS: PLATELET MORPHOLOGY COMMENT NORMAL MORPHOLOGY (NORM); RBC MORPHOLOGY COMMENT NORMAL MORPHOLOGY (NORM); WBC MORPHOLOGY COMMENT NORMAL MORPHOLOGY (NORM)
[2017-12-09 14:20] LABS: BLOOD UREA NITROGEN 48 mg/dL (7-22); BUN/CREATININE RATIO 17.14 (6-20); LIPASE 490 IU/L (23-300); SERUM ALBUMIN 3.6 g/dL (3.5-4.8)
[2017-12-09] MEDS ORDERED: Sodium Chloride 0.9% 100 ML IV ONE (14:50)
--- NOTE | 2017-12-09 16:11 | DI ---
CT Abdomen/Pelvis WO Contrast,12/09/2017 3:15 PM: Clinical History: Abdominal pain Previous Exam: July 29, 2016 Findings: Multiple helically acquired CT images are obtained through the abdomen and pelvis without contrast, a nd demonstrate clear lungs. The liver, gallbladder, spleen, pancreas and adrenals are unremarkable. The kidneys are also unremarkable. There is no mesenteric or retroperitoneal lymphadenopathy. Urinary bladder is unremarkable. There are a few colonic diverticula without evidence of acute diverticuliti s. Peripheral vascular calcifications are seen. There is no free air nor free fluid. Mild degenerative changes of the lumbar spine are seen at the L5/S1 level. Mild degenerative changes of the hips are also noted. A few coronary artery calcifications are noted. Impression: No acute intra-abdominal pathology.
--- NOTE | 2017-12-09 17:12 | PDOC ---
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 I was asked by the ER doctor to admit the patient Dr. Kahlil Abreu was consult did for further evaluation and treatment of his possible upper GI bleed Past Medical History Medical History: 1. Hypertension. 2. Chronic renal failure stage III. 3. History of gout. 4. Peripheral vascular disease status post stenting of the left external and internal iliac arteries and right femoral artery in 2012. Stent in the right anterior tibial and tibioperoneal arteries in 2013, he had interventions to the left renal, left superficial femoral artery and left external iliac artery in 2015. 5. Left renal stenting in 2011. 6. History of TIA. 7. Hearing loss on the left ear. 8. Hyperlipidemia. 9. History of bleeding esophageal ulcer. 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 History of left carotid endarterectomy 2006, history of for right carotid endarterectomy 2007. 2. Left renal stent. 3. Peripheral vascular disease and multiple stenting. 4. History of colonic polyp removal. Pertinent Family History: Father at age 70 of [place], mother from lung cancer. Tobacco Use: Former Smoker In the Past 12 Months, Have Used or Abuse Any of the Following Substance: None Medication / Allergies Home Medications: Home Medications 3 Medication Instructions Recorded Confirmed Type Colchicine [Mitigare] 1 cap PO QD #90 cap 11/09/16 Clinic Zolpidem Tartrate [Ambien Cr] 1 tab PO QHS #30 tab 11/09/16 Clinic aspirin 81 mg tablet,delayed 81 mg PO QDAY #30 tab 01/31/17 12/09/17 Rx release ferrous sulfate ER 325 mg (65 mg 325 mg PO QDAY #30 cap 01/31/17 12/09/17 History iron) capsule,extended release hydrocodone 5 mg-acetaminophen 325 1 - 2 tab PO Q6H PRN #30 tab 01/31/17 History mg tablet olmesartan 20 mg tablet 20 mg PO QDAY #90 tab 04/22/17 12/09/17 Rx levothyroxine 25 mcg tablet 25 mcg PO QDAY #90 tab 05/14/17 12/09/17 Rx rosuvastatin 40 mg tablet 40 mg PO QPM #90 tab 05/14/17 12/09/17 Rx allopurinol 300 mg tablet 300 mg PO QDAY #90 tab 06/06/17 12/09/17 Rx zolpidem ER 12.5 mg 12.5 mg PO QHS #90 tab 06/06/17 12/09/17 Rx tablet,extended release,multiphase budesonide-formoterol HFA 80 2 puff INH BID #360 puff 07/10/17 12/09/17 Rx mcg-4.5 mcg/actuation aerosol inhaler cholecalciferol (vitamin D3) 5,000 5,000 unit PO QDAY #90 cap 07/10/17 12/09/17 Rx unit capsule ezetimibe 10 mg tablet 10 mg PO QHS #90 tab 07/10/17 12/09/17 Rx fluticasone 50 mcg/actuation nasal 1 spray INASL QD PRN #3 g 07/10/17 12/09/17 History spray,suspension prasugrel 10 mg tablet 10 mg PO QDAY #90 tab 07/10/17 12/09/17 Rx sodium bicarbonate 650 mg tablet 1,300 mg PO QDAY #180 tab 07/10/17 12/09/17 Rx pantoprazole 40 mg tablet,delayed 40 mg PO BID #180 tab 07/17/17 12/09/17 Rx release atenolol 25 mg tablet 25 mg PO QDAY #180 tab 08/16/17 12/09/17 Rx furosemide 20 mg tablet 20 mg PO QDAY #30 tab 08/19/17 12/09/17 Rx indapamide 2.5 mg tablet 5 mg PO QDAY #60 tab 11/20/17 12/09/17 Rx colchicine 0.6 mg capsule 0.6 mg PO QDAY #90 cap 12/02/17 12/09/17 Rx Allergies/Adverse Reactions: Allergies 3 Allergy/AdvReac Type Severity Reaction Status Date / Time GIOVANNI Inhibitors AdvReac Intermediate increases Verified 12/09/17 13:49 creat clopidogrel bisulfate AdvReac Intermediate itching Verified 12/09/17 13:49 [From Plavix] niacin AdvReac Intermediate ITCHING Verified 12/09/17 13:49 Review of Systems - Review of Systems All Systems: Reviewed & No Additional Complaints Except as Stated - Respiratory Respiratory: DENIES: Negative System Review, Cough, Sputum, Dyspnea At Rest, Dyspnea with Exertion, Pleuritic Pain, Hemoptysis, Wheezing, Other, See HPI - Cardiovascular Cardiovascular: DENIES: Negative System Review, Chest Pain, Edema, Syncope, Palpitations, Orthopnea, Paroxysmal Nocturnal Dyspnea, Other, See HPI - Gastrointestinal Gastrointestinal / Abdominal: REPORTS: Melena Exam - Vitals Vital Signs: Vital Signs Temperature 97.2 F Temperature Source Temporal Artery Scan Pulse Rate [Pulse Oximeter 73 Right] Respiratory Rate 20 Blood Pressure [Left Arm] 145/73 Pulse Ox 93 Oxygen Delivery Method Room Air Height 6 ft Weight 216 lb - General General Appearance: No Acute Distress, Cooperative - Respiratory Respiratory Exam: POSITIVE: Clear to Auscultation - Bilaterally, Breathing Non Labored, Normal To Percussion, Normal to Percussion and Palpation - Cardiovascular Cardiovascular Exam: POSITIVE: RRR, No Murmur, No Clicks, No Gallops, No Rubs, PMI Non-Displaced - GI/Abdominal GI/Abdominal Exam: POSITIVE: Normal Bowel Sounds, Non Tender, Non Distended, Soft, No Masses, No Hepatomegaly, No Splenomegaly, No Organomegaly Additional GI/Abdominal Exam Details: Medical mild left lower quadrant pain on deep palpation no guarding or rebound - Extremities Extremities Exam: POSITIVE: No Clubbing Present, No Edema Present Results - Labs CBC and BMP: 12/09/17 14:00 12/09/17 14:00 Assessment and Plan - Patient Problems (1) GI bleed Current Visit: No Status: Acute Comment: We'll start the patient on Protonix IV twice a day IV fluids and recheck CBC geriatric consult for possible EGD Code(s): K92.2 - Gastrointestinal hemorrhage, unspecified (2) Acute on chronic renal failure Current Visit: No Status: Acute Comment: We'll hold Lasix and indapamide hydrate patient Code(s): N17.9 - Acute kidney failure, unspecified; N18.9 - Chronic kidney disease, unspecified (3) Anemia Current Visit: No Status: Acute Onset Date: 08/05/12 Comment: Most likely secondary to melanotic stools patient already on iron replacement Code(s): D64.9 - Anemia, unspecified
[2017-12-09] MEDS ORDERED: Lactated Ringers 1,000 ML PRIMARY IV SCH (18:00)
--- NOTE | 2017-12-09 18:06 | CONSULT ---
Consult Note - Consult Consult Date: 12/09/17 Reason for Consult: PreOp Consulation : General Surgery Requesting Physician: Dr. Walker, Dr. Gross. Primary Care Provider: Gutierrez Hobbs MD - History of Present Illness History of Present Illness: The patient is a 72-year-old male I'm asked to see for presumed upper GI bleed. He reports approximately 4 days of feeling very fatigued and tired. He has had no lightheadedness or dizziness. He has had no "get up and go." Today he started having some supraumbilical abdominal pain. He then passed some black tarry stools. He did not see any blood or clots. It was just a black tar. He presented to the emergency room. His hemoglobin was 11.6. On October [id number] it was 12. His AST, ALT, and alkaline phosphatase were elevated at 133, 230, and [address] scan which shows no acute pathology. He is on Protonix twice a day. He does take a baby aspirin. His lipase is elevated at 490 and his amylase is elevated at 118. Patient reports she has not tasted blood in his mouth. He has had no hematemesis. I did an upper and lower endoscopy on the patient in 2014. He had changes of reflux as well as a tubular adenoma. In July of 2016 patient had a upper endoscopy because of a bleeding duodenal ulcer. He had an upper endoscopy and fresh blood was seen but no source was identified. [place] [facility] [place] or [place]. The patient reports they stopped the bleeding without surgery. He has had no trouble until now. Patient will be taken to the endoscopy suite for upper endoscopy. If we cannot control the bleeding he will likely need to be transferred again. Hopefully the bleeding has resolved. Review of Systems - Constitutional Constitutional: REPORTS: Fatigue - Gastrointestinal Gastrointestinal / Abdominal: REPORTS: Abdominal Pain, Melena, See HPI Past Medical History Medical History: 1. Hypertension. 2. Chronic renal failure stage III. 3. History of gout. 4. Peripheral vascular disease status post stenting of the left external and internal iliac arteries and right femoral artery in 2012. Stent in the right anterior tibial and tibioperoneal arteries in 2013, he had interventions to the left renal, left superficial femoral artery and left external iliac artery in 2015. 5. Left renal stenting in 2011. 6. History of TIA. 7. Hearing loss on the left ear. 8. Hyperlipidemia. 9. History of bleeding duodenal ulcer. 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 11. Alcohol-induced seizure. 12. History of transient ischemic attacks. 13. Hypothyroid. Surgical History: 1. History of left carotid endarterectomy 2006, history of for right carotid endarterectomy 2007. 2. Left renal stent. 3. Peripheral vascular disease and multiple stenting. 4. Colonoscopy in 2014 with a history of colonic polyp removal. 5. Esophagogastroduodenoscopy in 2014 and July 2016. Bleeding duodenal ulcer. 6. Tonsillectomy and adenoidectomy. 7. Surgical treatment of ureteral stenosis. 8. History of hemorrhoidectomy Pertinent Family History: Father at age 70 of [place], mother from lung cancer. Tobacco Use: Former Smoker In the Past 12 Months, Have Used or Abuse Any of the Following Substance: None Medication / Allergies Home Medications: Home Medications 3 Medication Instructions Recorded Confirmed Type Colchicine [Mitigare] 1 cap PO QD #90 cap 11/09/16 Clinic Zolpidem Tartrate [Ambien Cr] 1 tab PO QHS #30 tab 11/09/16 Clinic aspirin 81 mg tablet,delayed 81 mg PO QDAY #30 tab 01/31/17 12/09/17 Rx release ferrous sulfate ER 325 mg (65 mg 325 mg PO QDAY #30 cap 01/31/17 12/09/17 History iron) capsule,extended release hydrocodone 5 mg-acetaminophen 325 1 - 2 tab PO Q6H PRN #30 tab 01/31/17 History mg tablet olmesartan 20 mg tablet 20 mg PO QDAY #90 tab 04/22/17 12/09/17 Rx levothyroxine 25 mcg tablet 25 mcg PO QDAY #90 tab 05/14/17 12/09/17 Rx rosuvastatin 40 mg tablet 40 mg PO QPM #90 tab 05/14/17 12/09/17 Rx allopurinol 300 mg tablet 300 mg PO QDAY #90 tab 06/06/17 12/09/17 Rx zolpidem ER 12.5 mg 12.5 mg PO QHS #90 tab 06/06/17 12/09/17 Rx tablet,extended release,multiphase budesonide-formoterol HFA 80 2 puff INH BID #360 puff 07/10/17 12/09/17 Rx mcg-4.5 mcg/actuation aerosol inhaler cholecalciferol (vitamin D3) 5,000 5,000 unit PO QDAY #90 cap 07/10/17 12/09/17 Rx unit capsule ezetimibe 10 mg tablet 10 mg PO QHS #90 tab 07/10/17 12/09/17 Rx fluticasone 50 mcg/actuation nasal 1 spray INASL QD PRN #3 g 07/10/17 12/09/17 History spray,suspension prasugrel 10 mg tablet 10 mg PO QDAY #90 tab 07/10/17 12/09/17 Rx sodium bicarbonate 650 mg tablet 1,300 mg PO QDAY #180 tab 07/10/17 12/09/17 Rx pantoprazole 40 mg tablet,delayed 40 mg PO BID #180 tab 07/17/17 12/09/17 Rx release atenolol 25 mg tablet 25 mg PO QDAY #180 tab 08/16/17 12/09/17 Rx furosemide 20 mg tablet 20 mg PO QDAY #30 tab 08/19/17 12/09/17 Rx indapamide 2.5 mg tablet 5 mg PO QDAY #60 tab 11/20/17 12/09/17 Rx colchicine 0.6 mg capsule 0.6 mg PO QDAY #90 cap 12/02/17 12/09/17 Rx Allergies/Adverse Reactions: Allergies 3 Allergy/AdvReac Type Severity Reaction Status Date / Time GIOVANNI Inhibitors AdvReac Intermediate increases Verified 12/09/17 13:49 creat clopidogrel bisulfate AdvReac Intermediate itching Verified 12/09/17 13:49 [From Plavix] niacin AdvReac Intermediate ITCHING Verified 12/09/17 13:49 Results - Labs CBC and BMP: 12/09/17 14:00 12/09/17 14:00 - Imaging Status: Image Reviewed by Me, Report Reviewed by Me (CT shows sigmoid diverticulosis with a decompressed descending and sigmoid colon.) Exam - Vitals Vital Signs: Vital Signs Temperature 97.2 F Temperature Source Temporal Artery Scan Pulse Rate [Pulse Oximeter 73 Right] Respiratory Rate 20 Blood Pressure [Left Arm] 145/73 Pulse Ox 93 Oxygen Delivery Method Room Air Height 6 ft Weight 216 lb - General General Appearance: No Acute Distress, Cooperative, Obese - Respiratory Respiratory Exam: POSITIVE: Clear to Auscultation - Bilaterally, Breathing Non Labored - Cardiovascular Cardiovascular Exam: POSITIVE: RRR, No Murmur - GI/Abdominal GI/Abdominal Exam: POSITIVE: Normal Bowel Sounds, Non Distended, Soft Additional GI/Abdominal Exam Details: Mild tenderness between the umbilicus and sternum. Nonacute abdomen. No peritoneal signs. - Rectal Rectal Exam: POSITIVE: Deferred - Neurological Neurological Exam: POSITIVE: Alert, Oriented x 3 - Psychiatric Psychiatric Exam: POSITIVE: Normal Affect, Normal Mood Assessment and Plan - Patient Problems (1) Black tarry stools Current Visit: Yes Status: Acute Priority: High Onset Date: 12/09/17 Comment: Possible GI bleed. History of duodenal ulcer. Proceed with upper endoscopy. The procedure has been discussed with the patient in complete yet simple terms including benefits, risks, and alternatives. All questions have been answered. Informed consent has been obtained. Code(s): K92.1 - Melena (2) Epigastric abdominal pain Current Visit: Yes Status: Acute Priority: Medium Onset Date: 12/09/17 Comment: Etiology unclear. Could be peptic in nature. Proceed with endoscopy. We'll need to monitor labs including amylase and lipase. Code(s): R10.13 - Epigastric pain
[2017-12-09] MEDS ORDERED: PROPOFOL 10 MG/1 ML (200 MG/20 ML) VIAL IV ONE (18:11)
[2017-12-09] MEDS ORDERED: LIDOCAINE 2% VISCOUS(20 MG/1 ML) - 15 ML UD CUP PO ONE (18:11)
--- NOTE | 2017-12-09 18:52 | GEN.OPNOTE ---
EGD Operative Note Surgery Date: 12/09/17 Preoperative Diagnosis: Back and tarry stools. Epigastric abdominal pain. History of bleeding duodenal ulcer. Postoperative Diagnosis: Same. No evidence of upper GI bleeding. Stool Hemoccult weekly positive on digital rectal exam. Procedure: Esophagogastroduodenoscopy. Surgeon: Jc Abreu MD Anesthesia Provider: Herberth Bryan CRNA Anesthesia Type: MAC Indications: Patient feeling weak and fatigued with epigastric abdominal pain. He had passed several black and tarry stools today. No adam bleeding. He does have a history of a bleeding duodenal ulcer so he was taken to rule out active upper GI bleeding. Findings: Esophagus: [Normal] GE Junction : [No significant inflammation. Normal Z line.] Fundus : [Normal] Body : [Normal] Prepyloric : [Normal] Small Intestine : [The scope was advanced well into the third portion of the duodenum. No evidence of new or old bleeding.] A lubricated flexible upper endoscope was inserted and passed through the esophagus and stomach into the duodenum. The duodenum and duodenal bulb were unremarkable. Again no evidence of new or old blood. No evidence of inflammatory changes. The scope was withdrawn into the stomach. The entire gastric mucosa was normal without evidence of new or old blood. The scope was withdrawn into the distal esophagus. There was no significant pathology. Air was aspirated and the scope was withdrawn completing the procedure. I did a digital rectal exam at this time. His stool was weakly Hemoccult positive. No maroon stool, no clots and no adam blood. CT scan shows his descending and sigmoid colon has a few scattered diverticuli but it is decompressed which is inconsistent with active GI bleeding. The scope was withdrawn completing the procedure. Patient tolerated the procedure well without complication. He'll be sent to the medical surgical unit in stable condition. If there is evidence of active bleeding we could consider a bowel prep and a colonoscopy. If there is no evidence of acute or active bleeding he probably doesn't need a colonoscopy since he had one in 2014 and is not due until July 2019. Please call if I can be of further assistance. Monitor labs. Estimated Blood Loss (mL): 0 Fluids: Please see BUSINESS INTELLIGENCE ARCHITECT's notes. Pathology: No specimens. Complications: None. Endoscopy Procedures - Endoscopy Procedures Primary Endoscopy Procedure: [id number] : EGD, Diagonstic
[2017-12-09] MEDS ORDERED: FLUTICASONE PROPIONATE 16 GRAM (120 SPRAYS / BOTTLE) ENOS PRN (19:04)
[2017-12-09] MEDS ORDERED: ONDANSETRON 4 MG/2 ML VIAL IVP PRN (19:04)
[2017-12-09] MEDS ORDERED: LIDOCAINE W/ SODIUM BICARB 0.5 ML SYR SUBD PRN (19:04)
[2017-12-09] MEDS: Sodium Chloride 0.9% 1,000 ML PRIMARY IV SCH (19:45)
[2017-12-09] MEDS ORDERED: Magnesium Sulfate 2gm (Premix) 2 GM/50 ML BAG IV ONE (20:46)
[2017-12-09] MEDS: Rosuvastatin Tab 20 MG TAB PO SCH (21:00)
[2017-12-09] MEDS: Sodium Bicarbonate Tab 650 MG TAB PO SCH (21:00)
[2017-12-09] MEDS: EZETIMIBE 10 MG TABLET PO SCH (21:00)
[2017-12-09] MEDS: Non-Formulary Drug (Budesonide/Formoterol Fumarate [Symbicort] 2 PUFF) INH SCH (23:40)
[2017-12-10 04:52] LABS: BASOPHILS # (AUTO) 0.03 10*3/UL; BASOPHILS % (AUTO) 0.5 % (0-1); EOSINOPHILS # (AUTO) 0.26 10*3/UL; EOSINOPHILS % (AUTO) 4.3 % (0-8); Hemoglobin [HGB] 10.4 g/dL (14.0-18.0); MEAN CORPUSCULAR HEMOGLOBIN 30.5 PG (27-31); MEAN CORPUSCULAR HGB CONC 33.5 g/dL (33-37); MEAN CORPUSCULAR VOLUME 90.9 FL (80-90); MEAN PLATELET VOLUME 9.3 FL (7.4-12.2); MONOCYTES # (AUTO) 0.44 10*3/UL (0.3-0.8); MONOCYTES % (AUTO) 7.2 % (5-15); NEUTROPHILS # (AUTO) 4.14 10*3/UL; NEUTROPHILS % (AUTO) 68.1 % (50-80); RED BLOOD COUNT 3.41 10^6/uL (4.70-6.10)
[2017-12-10 04:54] LABS: PLATELET MORPHOLOGY COMMENT NORMAL MORPHOLOGY (NORM); RBC MORPHOLOGY COMMENT NORMAL MORPHOLOGY (NORM); WBC MORPHOLOGY COMMENT NORMAL MORPHOLOGY (NORM)
[2017-12-10 04:58] LABS: BLOOD UREA NITROGEN 40 mg/dL (7-22); BUN/CREATININE RATIO 16.66 (6-20); LIPASE 497 IU/L (23-300); SERUM ALBUMIN 3.1 g/dL (3.5-4.8)
[2017-12-10] MEDS: LEVOTHYROXINE 25 MCG TABLET PO SCH (05:09)
[2017-12-10] MEDS ORDERED: Lactated Ringers 1,000 ML PRIMARY IV ONE (06:10)
[2017-12-10] MEDS: Sodium Chloride 0.9% 1,000 ML PRIMARY IV SCH ×3 (06:12→20:14)
[2017-12-10] MEDS ORDERED: ATENOLOL 25 MG TABLET PO SCH (09:00)
[2017-12-10] MEDS ORDERED: FERROUS SULFATE 325 MG TABLET PO SCH (09:00)
[2017-12-10] MEDS ORDERED: Olmesartan Tab 20 MG TAB PO SCH (09:00)
[2017-12-10] MEDS ORDERED: ASPIRIN EC 81 MG TABLET PO SCH (09:00)
[2017-12-10] MEDS ORDERED: CHOLECALCIFEROL 1000 IU TABLET PO SCH (09:00)
[2017-12-10] MEDS ORDERED: PRASUGREL HCL 10 MG PO SCH (09:00)
[2017-12-10] MEDS: Sodium Bicarbonate Tab 650 MG TAB PO SCH (09:16)
[2017-12-10] MEDS: Non-Formulary Drug (Budesonide/Formoterol Fumarate [Symbicort] 2 PUFF) INH SCH (09:40)
--- NOTE | 2017-12-10 11:49 | PDOC(PROG) ---
Interval History: Patient feels much better today complains of no pain. Objective : Data - Labs CBC and BMP: 12/10/17 04:11 12/10/17 04:11 Objective : Exam - General General Appearance: No Acute Distress - Respiratory Respiratory Exam: Clear to Auscultation - Bilaterally, Breathing Non Labored, Normal To Percussion, Normal to Percussion and Palpation - Cardiovascular Cardiovascular Exam: RRR, No Murmur, No Clicks, No Gallops, No Rubs, PMI Non- Displaced - GI/Abdominal GI/Abdominal Exam: Normal Bowel Sounds, Non Tender, Non Distended, Soft, No Masses, No Hepatomegaly, No Splenomegaly, No Organomegaly - Extremities Extremities Exam: No Clubbing Present, No Edema Present Assessment and Plan - Patient Problems (1) GI bleed Current Visit: Yes Status: Acute Comment: Had EGD no active bleeding ulcer present Code(s): K92.2 - Gastrointestinal hemorrhage, unspecified (2) Acute on chronic renal failure Current Visit: No Status: Acute Comment: This has improved with the hydration creatinine down from 2.8 to -2.4 Code(s): N17.9 - Acute kidney failure, unspecified; N18.9 - Chronic kidney disease, unspecified (3) Anemia Current Visit: Yes Status: Acute Onset Date: 08/05/12 Comment: Has been stable Code(s): D64.9 - Anemia, unspecified (4) Elevated pancreatic enzyme Current Visit: Yes Status: Acute Comment: Mild pancreatitis slight elevation of lipase today we'll keep nothing by mouth repeat lipase in a.m. and advance diet. Patient said he will leave the hospital no matter what tomorrow because he needs to go to work Code(s): R74.8 - Abnormal levels of other serum enzymes
--- NOTE | 2017-12-10 15:48 | CRNA.PROGR ---
Post Anesthesia Phase II - Post Anesthesia Phase II Patient Stable and Discharged To: Phase II Care Assumed By Surgeon: Jc Abreu MD Temperature: 97.4 F Pulse Rate: 66 Respiratory Rate: 17 Blood Pressure: 106/70 Pulse Ox: 97 Total Shante Score at Discharge: 10 Post Anesthesia Discharge Criteria Met: Yes
--- NOTE | 2017-12-10 15:48 | CRNA.PROGR ---
Anesthesia Time - - Start date: 12/09/17 End date: 12/09/17 - Procedure/Recovery Time Anesthesia : Time In: 18:23 Anesthesia : Time Out: 18:45 Anesthesia : Total Time: 22 - Total Anesthesia Time Total Anesthesia Time (minutes): 22 - Other Weight: 102.512 kg Height: 6 ft Body Mass Index (BMI): 30.6 Physical Status: P3 Anesthesia Type: MAC (EGD)
[2017-12-10] MEDS: EZETIMIBE 10 MG TABLET PO SCH (20:37)
[2017-12-10] MEDS: Rosuvastatin Tab 20 MG TAB PO SCH (20:37)
[2017-12-11] MEDS: LEVOTHYROXINE 25 MCG TABLET PO SCH (04:48)
[2017-12-11 05:03] VITALS: RESP 20
[2017-12-11 06:12] LABS: BLOOD UREA NITROGEN 29 mg/dL (7-22); LIPASE 533 IU/L (23-300); SERUM ALBUMIN 2.9 g/dL (3.5-4.8)
[2017-12-11 07:02] VITALS: BP 195/70; TEMP 98.8; O2SAT 96
--- NOTE | 2017-12-11 08:42 | DCSUMMARY ---
Hospitalization Summary Hospital Course: Final Discharge Diagnosis: Current Visit Problems Problem Status Onset Code Epigastric abdominal pain Acute 12/09/17 R10.13 Black tarry stools Acute 12/09/17 K92.1 Elevated pancreatic enzyme Acute R74.8 Anemia Acute 08/05/12 D64.9 Chronic renal failure Acute GI bleed Acute K92.2 Diagnostic Data, Laboratory Data, and Procedures of Signifigance: Laboratory Results 12/11/17 Range/Units 04:37 Sodium 142 (135-145) meq/L Potassium 4.4 (3.8-5.2) meq/L Chloride 115 H (98-112) meq/L Carbon Dioxide 22 L (23-33) meq/L Anion Gap 5 (5-20) BUN 29 H (7-22) mg/dL Creatinine 2.1 H (0.70-1.50) mg/dL Estimated GFR [employer] BUN/Creatinine Ratio 13.80 (6-20) Glucose 89 (78-110) mg/dL Calculated Osmolality 298.0 H (267-292) mOsm/kg Calcium 8.8 (8.7-10.7) mg/dL Total Bilirubin 0.3 (0.3-1.2) mg/dL AST 91 H (21-57) IU/L ALT 154 H (21-72) IU/L Alkaline Phosphatase 127 H (38-126) IU/L Total Protein 5.6 L (6.1-8.0) g/dL Albumin 2.9 L (3.5-4.8) g/dL Globulin 2.7 (2.50-4.10) g/dL Albumin/Globulin Ratio 1.00 L (1.3-2.0) mg/g Lipase 533 H (23-300) IU/L History and Physical pertinent to Admission: Course of Hospitalization: Is a very nice 72-year-old gentleman who comes in with abdominal pain and and the was not feeling well for about 4 days and not passed black tarry stools with also elevated lipase amylase and LFTs. Patient was scoped by Dr. Abreu with culture revealed no active bleeding ulcer but with elevation of his lipase most likely has a mild pancreatitis patient was kept nothing by mouth. The plan was for possibly this morning to have him eat some clear liquids after we would do look at his labs to see if his lipase was improving. His lipase was actually more elevated most likely requiring an MRCP to look further into his pancreas. I was called by the nurse that the patient was not interested in having breakfast and he was going to leave the hospital I also came in to try to talk to the patient to explain what the nurses asked and explained to him but he had left the AGAINST MEDICAL ADVICE On the date of discharge, the patient was not examined: Patient had left AMA initially said he was going to wait for me to talk to him and then he decided to leave before I got here which was a matter of 2 minutes Gen.: [No acute distress, alert, nontoxic] Heart: [Regular rate and rhythm, no murmurs, clicks, gallops, or rubs] Lungs: [Clear to auscultation bilaterally, breathing is nonlabored] Abdomen/GI: [Normal tones on auscultation, soft, nontender, nondistended] Musculoskeletal/extremities: [No clubbing, cyanosis, or edema] Vitals reviewed and are listed below Assessment and Plan: 1. As per discharge assessments above 2. Disposition: AMA 3. Condition on discharge, stable and improved. 4. Diet: regular diet 5. Activities: resume normal activities 6. Follow-Up: 1. [PCP] 2. 7. Medications at the Time of Discharge: 8. Time, care, counseling and coordination of care for this discharge is greater than 30 minutes. Exam - Vitals Vital Signs: Vital Signs Temperature 98.8 F Temperature Source Temporal Artery Scan Pulse Rate [Apical] 70 Pulse Rate [Pulse Oximeter 67 Right] Pulse Rate 66 Respiratory Rate 20 Blood Pressure [Left Arm] 195/70 Blood Pressure 106/70 Pulse Ox 96 Oxygen Flow Rate 2 Oxygen Delivery Method Nasal Cannula Height 6 ft Weight 222 lb 12.8 oz Patient Problems - Patient Problem List (1) GI bleed Current Visit: Yes Status: Acute Code(s): K92.2 - Gastrointestinal hemorrhage, unspecified Category: Medical (2) Acute on chronic renal failure Current Visit: No Status: Acute Code(s): N17.9 - Acute kidney failure, unspecified; N18.9 - Chronic kidney disease, unspecified Category: Medical (3) Anemia Current Visit: Yes Status: Acute Onset Date: 08/05/12 Code(s): D64.9 - Anemia, unspecified Category: Medical (4) Elevated pancreatic enzyme Current Visit: Yes Status: Acute Code(s): R74.8 - Abnormal levels of other serum enzymes Category: Medical
== END 2017-12-11 08:14 | disposition left against medical advice (07) ==
LOC: ER 13:40 → MED/SURG 17:01 → INTOOBSV 17:01 → MED/SURG 17:17 → OPS 18:22 → MED/SURG 18:51
PROVIDERS: ADMIT Internal Medicine; ATTEND Internal Medicine

== ENCOUNTER 2017-12-28 13:01 | Inpatient (IN) ==
[2017-12-28] MEDS ORDERED: FAMOTIDINE 20 MG/2 ML VIAL IVP ONE (13:28)
[2017-12-28] MEDS ORDERED: Sodium Chloride 0.9% 1,000 ML PRIMARY IV ONE (13:28)
[2017-12-28] MEDS ORDERED: ONDANSETRON 4 MG/2 ML VIAL IVP ONE (13:28)
[2017-12-28 13:39] LABS: BASOPHILS # (AUTO) 0.03 10*3/UL; BASOPHILS % (AUTO) 0.5 % (0-1); EOSINOPHILS # (AUTO) 0.19 10*3/UL; EOSINOPHILS % (AUTO) 3.4 % (0-8); Hematocrit [HCT] 28.2 % (42.0-52.0); Hemoglobin [HGB] 9.1 g/dL (14.0-18.0); LYMPHOCYTES # (AUTO) 1.05 10*3/uL; MEAN CORPUSCULAR HEMOGLOBIN 30.7 PG (27-31); MEAN CORPUSCULAR HGB CONC 32.3 g/dL (33-37); MEAN CORPUSCULAR VOLUME 95.3 FL (80-90); MEAN PLATELET VOLUME 9.5 FL (7.4-12.2); MONOCYTES # (AUTO) 0.31 10*3/UL (0.3-0.8); MONOCYTES % (AUTO) 5.6 % (5-15); NEUTROPHILS # (AUTO) 3.95 10*3/UL; NEUTROPHILS % (AUTO) 71.3 % (50-80); RED BLOOD COUNT 2.96 10^6/uL (4.70-6.10)
[2017-12-28 13:40] LABS: PLATELET MORPHOLOGY COMMENT NORMAL MORPHOLOGY (NORM); RBC MORPHOLOGY COMMENT NORMAL MORPHOLOGY (NORM); WBC MORPHOLOGY COMMENT NORMAL MORPHOLOGY (NORM)
[2017-12-28 13:49] LABS: BLOOD UREA NITROGEN 53 mg/dL (7-22); BUN/CREATININE RATIO 17.66 (6-20); LIPASE 508 IU/L (23-300); SERUM ALBUMIN 3.6 g/dL (3.5-4.8)
[2017-12-28] MEDS ORDERED: MORPHINE SULFATE 4 MG/1 ML IVP ONE (14:37)
--- NOTE | 2017-12-28 15:21 | DI ---
EXAM: CT ABDOMEN PELVIS WITHOUT CONTRAST INDICATION: Abdominal pain TECHNIQUE: Multiple, contiguous 3 mm axial cuts of the abdomen and pelvis are obtained from the lung bases to the ischial tuberosities. Sagittal and coronal reformatted images are available. COMPARISON: CT abdomen pelvis 12/09/17 FINDINGS: Minimal dependent bilateral basilar atelectasis. No infiltrates in the lung bases. There is coronary artery calcification. Liver: Unenhanced liver is unremarkable. Spleen: Unenhanced spleen is unremarkable. Pancreas: Unenhanced pancreas is unremarkable. Gallbladder: Gallbladder is unremarkable by CT exam. Adrenal glands: Unenhanced adrenal glands are unremarkable. Kidneys: No urinary tract stones or hydronephrosis. There is mild bilateral perirenal fascial edema again noted similar in appearance since prior exam. Otherwise unenhanced kidneys are unremarkable.. GI tract: No bowel obstruction. No free fluid or free air or acute mesenteric inflammatory changes. Diverticulosis of the sigmoid colon without diverticulitis. Appendix: Appendix is not visualized however no secondary signs for acute appendicitis is seen. Urinary bladder: Unopacified urinary bladder is unremarkable. Abdominal aorta: Abdominal aorta normal caliber. There is arteriovascular calcification extensive involving the iliac arteries. There is also prominent vascular calcification at the origin of the bilateral renal artery and origin of the superior mesenteric artery again noted. Moderate vascular calcification of the abdominal aorta. Retroperitoneum. No adenopathy. Osseous structures: No acute osseous abnormality. Degenerative changes lower lumbar spine again noted. Prostate gland appears mildly enlarged. IMPRESSION: 1. No acute intra-abdominal process identified. 2. No free fluid or free air or bowel obstruction. 3. No urinary tract stones or hydronephrosis. Bilateral perirenal fascial edema is again noted which may be related to patient's renal status. 4. Diverticulosis sigmoid colon without diverticulitis. 5. Appendix is not visualized however no secondary signs for acute appendicitis is seen. 6. Extensive vascular calcification of the iliac arteries and moderate degree of the abdominal aorta. There is prominent calcified plaque in the origin of the bilateral renal arteries and origin of the superior mesenteric artery again noted which may be hemodynamically significant.
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
[2017-12-28 16:27] LABS: BILIRUBIN,URINE NEGATIVE (NEG); CLARITY,URINE CLEAR (CLEAR); COLOR,URINE YELLOW (Y); GLUCOSE, URINE (UA) NEGATIVE (NEG); OCCULT BLOOD,URINE MODERATE (NEG); PH,URINE 5.5 (5.0-8.5); PROTEIN,URINE 100 mg/dl (NEG); UROBILINOGEN,URINE 0.2 EU/dL (0.2)
[2017-12-28 16:43] LABS: URINE CRYSTALS FEW; URINE SAMPLE TYPE CLEAN CATCH URINE
[2017-12-28] MEDS ORDERED: ONDANSETRON 4 MG/2 ML VIAL IVP PRN (16:44)
[2017-12-28] MEDS ORDERED: LIDOCAINE W/ SODIUM BICARB 0.5 ML SYR SUBD PRN ×2 (16:44→18:11)
--- NOTE | 2017-12-28 16:53 | PDOC ---
HPI - History of Present Illness Date of Service: 12/28/17 Time of Service: 17:00 Chief Complaint: Abdominal pain of one day duration History of Present Illness: This is a 72 years old male with medical history significant for history of hypertension, peripheral vascular disease with multiple stents before, chronic renal failure, hypothyroidism, he had upper GI bleed in 2017 was given blood transfusion here and was transferred to 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 Patient signed AMA, he said he did okay until yesterday when he started to have some abdominal discomfort got really worse today felt in the midabdomen doesn't radiate severe and because of that he came into the hospital. He said his stools more brownish in color now. Down in the ER guaiac stool was positive. He had some elevation in his the lipase but he has a chronic renal failure. The patient was admitted to the hospital. By the time I saw him he was feeling better he did receive some pain medication and that's helped his pain. Past Medical History Medical History: 1. Hypertension. 2. Chronic renal failure stage III. 3. History of gout. 4. Peripheral vascular disease status post stenting of the left external and internal iliac arteries and right femoral artery in 2012. Stent in the right anterior tibial and tibioperoneal arteries in 2013, he had interventions to the left renal, left superficial femoral artery and left external iliac artery in 2015. 5. Left renal stenting in 2011. 6. History of TIA. 7. Hearing loss on the left ear. 8. Hyperlipidemia. 9. History of bleeding duodenal ulcer. 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 11. Alcohol-induced seizure. 12. History of transient ischemic attacks. 13. Hypothyroid. 14. 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. Surgical History: 1. History of left carotid endarterectomy 2006, history of for right carotid endarterectomy 2007. 2. Left renal stent. 3. Peripheral vascular disease and multiple stenting. 4. Colonoscopy in 2014 with a history of colonic polyp removal. 5. Esophagogastroduodenoscopy in 2014 and July 2016. Bleeding duodenal ulcer. 6. Tonsillectomy and adenoidectomy. 7. Surgical treatment of ureteral stenosis. 8. History of hemorrhoidectomy Pertinent Family History: Father at age 70 of [place], mother from lung cancer. Tobacco Use: Former Smoker In the Past 12 Months, Have Used or Abuse Any of the Following Substance: None Medication / Allergies Home Medications: Home Medications 3 Medication Instructions Recorded Confirmed Type Colchicine [Mitigare] 1 cap PO QD #90 cap 11/09/16 Clinic Zolpidem Tartrate [Ambien Cr] 1 tab PO QHS #30 tab 11/09/16 Clinic aspirin 81 mg tablet,delayed 81 mg PO QDAY #30 tab 01/31/17 12/28/17 Rx release ferrous sulfate ER 325 mg (65 mg 325 mg PO QDAY #30 cap 01/31/17 12/28/17 History iron) capsule,extended release hydrocodone 5 mg-acetaminophen 325 1 - 2 tab PO Q6H PRN #30 tab 01/31/17 History mg tablet olmesartan 20 mg tablet 20 mg PO QDAY #90 tab 04/22/17 12/28/17 Rx levothyroxine 25 mcg tablet 25 mcg PO QDAY #90 tab 05/14/17 12/28/17 Rx rosuvastatin 40 mg tablet 40 mg PO QPM #90 tab 05/14/17 12/28/17 Rx allopurinol 300 mg tablet 300 mg PO QDAY #90 tab 06/06/17 12/28/17 Rx zolpidem ER 12.5 mg 12.5 mg PO QHS #90 tab 06/06/17 12/28/17 Rx tablet,extended release,multiphase budesonide-formoterol HFA 80 2 puff INH BID #360 puff 07/10/17 12/28/17 Rx mcg-4.5 mcg/actuation aerosol inhaler cholecalciferol (vitamin D3) 5,000 5,000 unit PO QDAY #90 cap 07/10/17 12/28/17 Rx unit capsule ezetimibe 10 mg tablet 10 mg PO QHS #90 tab 07/10/17 12/28/17 Rx fluticasone 50 mcg/actuation nasal 1 spray INASL QD PRN #3 g 07/10/17 12/28/17 History spray,suspension prasugrel 10 mg tablet 10 mg PO QDAY #90 tab 07/10/17 12/28/17 Rx sodium bicarbonate 650 mg tablet 1,300 mg PO QDAY #180 tab 07/10/17 12/28/17 Rx pantoprazole 40 mg tablet,delayed 40 mg PO BID #180 tab 07/17/17 12/28/17 Rx release atenolol 25 mg tablet 25 mg PO QDAY #180 tab 08/16/17 12/28/17 Rx furosemide 20 mg tablet 20 mg PO QDAY #30 tab 08/19/17 12/28/17 Rx indapamide 2.5 mg tablet 5 mg PO QDAY #60 tab 11/20/17 12/28/17 Rx colchicine 0.6 mg capsule 0.6 mg PO QDAY #90 cap 12/02/17 12/28/17 Rx Allergies/Adverse Reactions: Allergies 3 Allergy/AdvReac Type Severity Reaction Status Date / Time GIOVANNI Inhibitors AdvReac Intermediate increases Verified 12/28/17 16:17 creat clopidogrel bisulfate AdvReac Intermediate itching Verified 12/28/17 16:17 [From Plavix] niacin AdvReac Intermediate ITCHING Verified 12/28/17 16:17 Review of Systems - Review of Systems All Systems: Reviewed & No Additional Complaints Except as Stated Exam - Vitals Vital Signs: Vital Signs Temperature 97.6 F Temperature Source Oral Pulse Rate [Apical] 66 Pulse Rate [Pulse Oximeter 59 Bilateral Radial] Respiratory Rate 16 Blood Pressure [Left Arm] 114/69 Pulse Ox 94 Oxygen Delivery Method Room Air Height 5 ft 10 in Weight 229 lb 8 oz - General General Appearance: No Acute Distress, Cooperative - Head Head Exam: Normal Inspection - Eye Eye Exam: POSITIVE: Normal Appearance - ENT ENT Exam: POSITIVE: Normal Exam - Neck Neck Exam: Normal Inspection - Respiratory Respiratory Exam: POSITIVE: Clear to Auscultation - Bilaterally - Cardiovascular Cardiovascular Exam: POSITIVE: RRR - GI/Abdominal GI/Abdominal Exam: POSITIVE: Normal Bowel Sounds, Non Distended, Soft, No Organomegaly Additional GI/Abdominal Exam Details: There is some tenderness in the mid abdomen not severe though. Minimal. - Rectal Rectal Exam: POSITIVE: Deferred - External Exam: POSITIVE: Deferred - Extremities Extremities Exam: POSITIVE: Normal Inspection - Back Back Exam: POSITIVE: Normal Inspection - Neurological Neurological Exam: POSITIVE: Alert, Oriented x 3, CN II-XII Intact, No Facial Droop, Speech Intact / Clear - Psychiatric Psychiatric Exam: POSITIVE: Normal Affect - Integumentary Integumentary Exam: POSITIVE: Normal Color Results - Labs CBC and BMP: 12/28/17 13:35 12/28/17 13:35 - Imaging Status: Report Reviewed by Me (CT abdomen 1. No acute intra-abdominal process identified. 2. No free fluid or free air or bowel obstruction. 3. No urinary tract stones or hydronephrosis. Bilateral perirenal fascial edema is again noted which may be related to patient's renal status. 4. Diverticulosis sigmoid colon without diverticulitis. 5. Appendix is not visualized however no secondary signs for acute appendicitis is seen. 6. Extensive vascular calcification of the iliac arteries and moderate degree of the abdominal aorta. There is prominent calcified plaque in the origin of the bilateral renal arteries and origin of the superior mesenteric artery again noted which may be hemodynamically significant.) Assessment and Plan - Patient Problems (1) Abdominal pain Current Visit: Yes Status: Acute Comment: Etiology is not clear. The elevated lipase I think is secondary to the chronic renal failure. Because of the drop in his hemoglobin and the positive guaiac stool I spoke with Dr. Khan the plan for him is to have a coloscopy tomorrow. Meanwhile put him on clear liquid, pain medications and cautious amount of IV fluid. Code(s): R10.9 - Unspecified abdominal pain (2) Essential hypertension Current Visit: Yes Status: Acute Onset Date: 01/17/12 Comment: Resume his Medication but will hold the diuretics for now. Code(s): I10 - Essential (primary) hypertension (3) Acquired hypothyroidism Current Visit: No Status: Acute Onset Date: 08/14/16 Comment: Same med Code(s): E03.9 - Hypothyroidism, unspecified (4) Elevated pancreatic enzyme Current Visit: Yes Status: Acute Comment: I think this is secondary to his renal failure rather than true pancreatitis. We'll recheck his lipase and amylase tomorrow. Code(s): R74.8 - Abnormal levels of other serum enzymes (5) Hypothyroidism Current Visit: No Status: Acute Comment: Same med Code(s): E03.9 - Hypothyroidism, unspecified
[2017-12-28] MEDS: ATENOLOL 25 MG TABLET PO SCH (17:18)
[2017-12-28] MEDS: Sodium Bicarbonate Tab 650 MG TAB PO SCH (17:19)
[2017-12-28] MEDS: Sodium Chloride 0.9% 1,000 ML PRIMARY IV SCH (17:19)
[2017-12-28] MEDS: PANTOPRAZOLE IV 40 MG VIAL IVP SCH (17:19)
[2017-12-28] MEDS ORDERED: MORPHINE SULFATE 2 MG/1 ML IVP PRN (17:30)
[2017-12-28] MEDS ORDERED: POLYETHYLENE GLYCOL 3350 17 GM POWDER PO ONE ×2 (17:32→18:45)
--- NOTE | 2017-12-28 18:11 | CONSULT ---
Consult Note - Consult Consult Date: 12/28/17 Reason for Consult: Orthopedic Consult Requesting Physician: Ricardo Primary Care Provider: Gutierrez Hobbs MD - History of Present Illness History of Present Illness: This is a 70-year-old gentleman recently had an EGD for an upper GI bleed. He apparently had a normal EGD at that time. Patient comes back in being anemic. His hemoglobin is 9.1. He does have guaiac positive stools. Patient has a remote history and have an AV malformations he also has a history of abdominal spot polyps. Patient denies any melanotic stools. Denies any hematemesis Review of Systems - Review of Systems All Systems: Reviewed & No Additional Complaints Except as Stated Past Medical History Medical History: 1. Hypertension. 2. Chronic renal failure stage III. 3. History of gout. 4. Peripheral vascular disease status post stenting of the left external and internal iliac arteries and right femoral artery in 2012. Stent in the right anterior tibial and tibioperoneal arteries in 2013, he had interventions to the left renal, left superficial femoral artery and left external iliac artery in 2015. 5. Left renal stenting in 2011. 6. History of TIA. 7. Hearing loss on the left ear. 8. Hyperlipidemia. 9. History of bleeding duodenal ulcer. 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 11. Alcohol-induced seizure. 12. History of transient ischemic attacks. 13. Hypothyroid. 14. 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 Surgical History: 1. History of left carotid endarterectomy 2006, history of for right carotid endarterectomy 2007. 2. Left renal stent. 3. Peripheral vascular disease and multiple stenting. 4. Colonoscopy in 2014 with a history of colonic polyp removal. 5. Esophagogastroduodenoscopy in 2014 and July 2016. Bleeding duodenal ulcer. 6. Tonsillectomy and adenoidectomy. 7. Surgical treatment of ureteral stenosis. 8. History of hemorrhoidectomy Pertinent Family History: Father at age 70 of [place], mother from lung cancer. Tobacco Use: Former Smoker In the Past 12 Months, Have Used or Abuse Any of the Following Substance: None Medication / Allergies Home Medications: Home Medications 3 Medication Instructions Recorded Confirmed Type Colchicine [Mitigare] 1 cap PO QD #90 cap 11/09/16 Clinic Zolpidem Tartrate [Ambien Cr] 1 tab PO QHS #30 tab 11/09/16 Clinic aspirin 81 mg tablet,delayed 81 mg PO QDAY #30 tab 01/31/17 12/28/17 Rx release ferrous sulfate ER 325 mg (65 mg 325 mg PO QDAY #30 cap 01/31/17 12/28/17 History iron) capsule,extended release hydrocodone 5 mg-acetaminophen 325 1 - 2 tab PO Q6H PRN #30 tab 01/31/17 History mg tablet olmesartan 20 mg tablet 20 mg PO QDAY #90 tab 04/22/17 12/28/17 Rx levothyroxine 25 mcg tablet 25 mcg PO QDAY #90 tab 05/14/17 12/28/17 Rx rosuvastatin 40 mg tablet 40 mg PO QPM #90 tab 05/14/17 12/28/17 Rx allopurinol 300 mg tablet 300 mg PO QDAY #90 tab 06/06/17 12/28/17 Rx zolpidem ER 12.5 mg 12.5 mg PO QHS #90 tab 06/06/17 12/28/17 Rx tablet,extended release,multiphase budesonide-formoterol HFA 80 2 puff INH BID #360 puff 07/10/17 12/28/17 Rx mcg-4.5 mcg/actuation aerosol inhaler cholecalciferol (vitamin D3) 5,000 5,000 unit PO QDAY #90 cap 07/10/17 12/28/17 Rx unit capsule ezetimibe 10 mg tablet 10 mg PO QHS #90 tab 07/10/17 12/28/17 Rx fluticasone 50 mcg/actuation nasal 1 spray INASL QD PRN #3 g 07/10/17 12/28/17 History spray,suspension prasugrel 10 mg tablet 10 mg PO QDAY #90 tab 07/10/17 12/28/17 Rx sodium bicarbonate 650 mg tablet 1,300 mg PO QDAY #180 tab 07/10/17 12/28/17 Rx pantoprazole 40 mg tablet,delayed 40 mg PO BID #180 tab 07/17/17 12/28/17 Rx release atenolol 25 mg tablet 25 mg PO QDAY #180 tab 08/16/17 12/28/17 Rx furosemide 20 mg tablet 20 mg PO QDAY #30 tab 08/19/17 12/28/17 Rx indapamide 2.5 mg tablet 5 mg PO QDAY #60 tab 11/20/17 12/28/17 Rx colchicine 0.6 mg capsule 0.6 mg PO QDAY #90 cap 12/02/17 12/28/17 Rx Allergies/Adverse Reactions: Allergies 3 Allergy/AdvReac Type Severity Reaction Status Date / Time GIOVANNI Inhibitors AdvReac Intermediate increases Verified 12/28/17 16:17 creat clopidogrel bisulfate AdvReac Intermediate itching Verified 12/28/17 16:17 [From Plavix] niacin AdvReac Intermediate ITCHING Verified 12/28/17 16:17 Results - Labs CBC and BMP: 12/28/17 13:35 12/28/17 13:35 Exam - Vitals Vital Signs: Vital Signs Temperature 97.6 F Temperature Source Tympanic Pulse Rate [Apical] 66 Pulse Rate [Pulse Oximeter 59 Bilateral Radial] Respiratory Rate 16 Blood Pressure [Left Arm] 114/69 Pulse Ox 94 Oxygen Delivery Method Room Air Height 5 ft 10 in Weight 229 lb 8 oz - General General Appearance: No Acute Distress, Cooperative - Respiratory Respiratory Exam: POSITIVE: Clear to Auscultation - Bilaterally, Breathing Non Labored - Cardiovascular Cardiovascular Exam: POSITIVE: RRR Assessment and Plan - Patient Problems (1) Anemia Current Visit: Yes Status: Acute Onset Date: 08/05/12 Code(s): D64.9 - Anemia, unspecified (2) GI bleed Current Visit: Yes Status: Acute Code(s): K92.2 - Gastrointestinal hemorrhage, unspecified - Assessment / Plan Additional Assessment/Plan Details: Given that the patient's persistently anemic and up on a source of his GI bleed , I do think the patient needs another colonoscopy. I went over the risk benefits with that he is agreed have this done. He will start a bowel prep. If the colonoscopy is normal I think patient is a bleeding scan. The patient will need a colonoscopy. The risks of the procedure and benefits were discussed with the patient. I have discussed the pathophysiology between polyps and colon cancer. I also discussed the reasons why we use a colonoscopy for screening method versus the other screening methods are available. The patient like to proceed with a colonoscopy, The procedure reset up at first available date. CPT 39087
[2017-12-28] MEDS ORDERED: Nasal Sanitizer POPSWAB ampule 3 AMP (Nozin) PREOP DOSE ENOS SCH (18:15)
[2017-12-28] MEDS ORDERED: Lactated Ringers 1,000 ML PRIMARY IV SCH (18:15)
[2017-12-28] MEDS: Rosuvastatin Tab 20 MG TAB PO SCH (21:52)
[2017-12-28] MEDS: EZETIMIBE 10 MG TABLET PO SCH (21:52)
[2017-12-29] MEDS: Non-Formulary Drug (Budesonide/Formoterol Fumarate [Symbicort] 2 PUFF) INH SCH ×3 (02:01→21:36)
[2017-12-29] MEDS: LEVOTHYROXINE 25 MCG TABLET PO SCH (05:06)
[2017-12-29] MEDS: PANTOPRAZOLE IV 40 MG VIAL IVP SCH ×2 (05:07→16:50)
[2017-12-29 06:24] LABS: BASOPHILS # (AUTO) 0.03 10*3/UL; BASOPHILS % (AUTO) 0.5 % (0-1); EOSINOPHILS # (AUTO) 0.23 10*3/UL; Hematocrit [HCT] 26.1 % (42.0-52.0); Hemoglobin [HGB] 8.5 g/dL (14.0-18.0); LYMPHOCYTES # (AUTO) 1.15 10*3/uL; MEAN CORPUSCULAR HGB CONC 32.6 g/dL (33-37); MEAN CORPUSCULAR VOLUME 95.3 FL (80-90); MEAN PLATELET VOLUME 10.1 FL (7.4-12.2); MONOCYTES # (AUTO) 0.64 10*3/UL (0.3-0.8); MONOCYTES % (AUTO) 11.1 % (5-15); NEUTROPHILS % (AUTO) 64.4 % (50-80); RED BLOOD COUNT 2.74 10^6/uL (4.70-6.10)
[2017-12-29] MEDS ORDERED: Fleet Enema 133ml RECTAL ONE (06:34)
[2017-12-29 06:37] LABS: PLATELET MORPHOLOGY COMMENT NORMAL MORPHOLOGY (NORM); RBC MORPHOLOGY COMMENT NORMAL MORPHOLOGY (NORM); WBC MORPHOLOGY COMMENT NORMAL MORPHOLOGY (NORM)
[2017-12-29 06:39] LABS: BLOOD UREA NITROGEN 41 mg/dL (7-22); BUN/CREATININE RATIO 17.08 (6-20); LIPASE 383 IU/L (23-300); SERUM ALBUMIN 2.7 g/dL (3.5-4.8)
[2017-12-29] MEDS: Sodium Chloride 0.9% 1,000 ML PRIMARY IV SCH (06:47)
[2017-12-29] MEDS ORDERED: Nasal Sanitizer POPSWAB ampule 3 AMP (Nozin) PREOP DOSE ENOS SCH (07:30)
[2017-12-29] MEDS: Lactated Ringers 1,000 ML PRIMARY IV SCH ×2 (07:53→16:51)
--- NOTE | 2017-12-29 08:43 | PDOC(PROG) ---
Date of Service: 12/28/17 Time of Service: 08:42 Interval History: Patient states he's feeling great had no abdominal pain. Hemoglobin dropped slightly. He did not have any results from his MiraLAX therefore were repeated today Objective : Data - Labs CBC and BMP: 12/29/17 05:35 12/29/17 05:35 - Vital Signs Vital Signs and I&O: Vital Signs - Last Taken Temperature 98.2 F 12/29/17 06:42 Pulse Rate 70 12/29/17 06:51 Respiratory Rate 22 12/29/17 06:51 Blood Pressure 98/59 12/29/17 06:42 Pulse Ox 91 12/29/17 06:42 Intake and Output (24hr x 4 totals) 12/27/17 12/28/17 12/29/17 12/30/17 05:59 05:59 05:59 05:59 Intake Total 1870 / 1870 Output Total 650 / 650 Balance 1220 / 1220 Objective : Exam - GI/Abdominal GI/Abdominal Exam: Normal Bowel Sounds, Non Tender, Non Distended, Soft Assessment and Plan - Patient Problems (1) Anemia Current Visit: Yes Status: Acute Onset Date: 08/05/12 Code(s): D64.9 - Anemia, unspecified (2) GI bleed Current Visit: Yes Status: Acute Code(s): K92.2 - Gastrointestinal hemorrhage, unspecified - Assessment / Plan Additional Assessment/Plan Details: Patient still needs a colonoscopy rule out GI lower GI source. May be able to get a tagged red blood cell today.
[2017-12-29] MEDS: Olmesartan Tab 20 MG TAB PO SCH (09:25)
[2017-12-29] MEDS: ATENOLOL 25 MG TABLET PO SCH (09:25)
[2017-12-29] MEDS: ALLOPURINOL 300 MG TABLET PO SCH (09:25)
[2017-12-29] MEDS: PRASUGREL HCL 10 MG PO SCH (09:26)
--- NOTE | 2017-12-29 10:33 | PDOC(PROG) ---
Date of Service: 12/29/17 Time of Service: 10:35 Interval History: Subjective Patient feels a lot better he said compared to when he came in. There is no abdominal pain today. He did not have a good result from the bowel prep so he' ll have another bowel preparation and they will attempt to do colonoscopy tomorrow. He is denying shortness of breath. Objective : Data - Labs CBC and BMP: 12/29/17 05:35 12/29/17 05:35 Objective : Exam - General General Appearance: No Acute Distress, Cooperative, Mild Distress - Head Head Exam: Normal Inspection - Eye Eye Exam: Normal Appearance - ENT ENT Exam: Normal Exam - Neck Neck Exam: Normal Inspection - Respiratory Respiratory Exam: Clear to Auscultation - Bilaterally - Cardiovascular Cardiovascular Exam: RRR, No Murmur - GI/Abdominal GI/Abdominal Exam: Normal Bowel Sounds, Non Tender, Non Distended, Soft, No Organomegaly - Rectal Rectal Exam: Deferred - External Exam: Deferred - Extremities Extremities Exam: Normal Inspection - Back Back Exam: Normal Inspection - Neurological Neurological Exam: Alert, Oriented x 3, CN II-XII Intact, Moves All Extremities Equally - Psychiatric Psychiatric Exam: Normal Affect Assessment and Plan - Patient Problems (1) Abdominal pain Current Visit: Yes Status: Acute Comment: Unclear etiology, pain is resolved now. He'll have colonoscopy tomorrow we'll cut back on the fluid. I think the drop in the hemoglobin is partly from hydration. Code(s): R10.9 - Unspecified abdominal pain (2) Essential hypertension Current Visit: Yes Status: Acute Onset Date: 01/17/12 Comment: Same medications Code(s): I10 - Essential (primary) hypertension (3) Acquired hypothyroidism Current Visit: No Status: Acute Onset Date: 08/14/16 Comment: Same med Code(s): E03.9 - Hypothyroidism, unspecified (4) Elevated pancreatic enzyme Current Visit: Yes Status: Acute Comment: I don't think he has pancreatitis this likely secondary to his chronic renal failure Code(s): R74.8 - Abnormal levels of other serum enzymes (5) Hypothyroidism Current Visit: No Status: Acute Comment: Same med Code(s): E03.9 - Hypothyroidism, unspecified
[2017-12-29] MEDS: Sodium Bicarbonate Tab 650 MG TAB PO SCH (16:51)
[2017-12-29] MEDS ORDERED: POLYETHYLENE GLYCOL 3350 17 GM POWDER PO ONE ×3 (18:00→21:30)
[2017-12-29] MEDS ORDERED: POLYETHYLENE GLYCOL 3350 17 GM POWDER PO SCH ×3 (20:15→22:45)
[2017-12-29] MEDS ORDERED: BISACODYL 5 MG TABLET PO ONE (20:19)
[2017-12-29] MEDS: EZETIMIBE 10 MG TABLET PO SCH (21:03)
[2017-12-29] MEDS: Rosuvastatin Tab 20 MG TAB PO SCH (21:03)
[2017-12-30] MEDS: PANTOPRAZOLE IV 40 MG VIAL IVP SCH (04:34)
[2017-12-30] MEDS: LEVOTHYROXINE 25 MCG TABLET PO SCH (04:35)
[2017-12-30 05:25] LABS: BASOPHILS # (AUTO) 0.03 10*3/UL; BASOPHILS % (AUTO) 0.7 % (0-1); EOSINOPHILS # (AUTO) 0.25 10*3/UL; EOSINOPHILS % (AUTO) 5.6 % (0-8); Hematocrit [HCT] 26.5 % (42.0-52.0); Hemoglobin [HGB] 8.7 g/dL (14.0-18.0); LYMPHOCYTES # (AUTO) 1.08 10*3/uL; MEAN CORPUSCULAR HEMOGLOBIN 31.5 PG (27-31); MEAN CORPUSCULAR HGB CONC 32.8 g/dL (33-37); MONOCYTES # (AUTO) 0.39 10*3/UL (0.3-0.8); MONOCYTES % (AUTO) 8.7 % (5-15); NEUTROPHILS # (AUTO) 2.72 10*3/UL; NEUTROPHILS % (AUTO) 60.7 % (50-80); PLATELET MORPHOLOGY COMMENT NORMAL MORPHOLOGY (NORM); RBC MORPHOLOGY COMMENT NORMAL MORPHOLOGY (NORM); RED BLOOD COUNT 2.76 10^6/uL (4.70-6.10); WBC MORPHOLOGY COMMENT NORMAL MORPHOLOGY (NORM)
[2017-12-30] MEDS: ATENOLOL 25 MG TABLET PO SCH (08:50)
[2017-12-30] MEDS: ALLOPURINOL 300 MG TABLET PO SCH (08:50)
[2017-12-30] MEDS: Olmesartan Tab 20 MG TAB PO SCH (08:50)
[2017-12-30] MEDS: PRASUGREL HCL 10 MG PO SCH (10:03)
[2017-12-30 11:17] VITALS: O2SAT 91
[2017-12-30] MEDS ORDERED: Lactated Ringers 1,000 ML PRIMARY IV ONE (11:18)
[2017-12-30] MEDS ORDERED: PROPOFOL 10 MG/1 ML (200 MG/20 ML) VIAL IV ONE (12:28)
--- NOTE | 2017-12-30 12:58 | CRNA.PROGR ---
Anesthesia Time - Procedure/Recovery Time Start Date: 12/30/17 End Date: 12/30/17 Anesthesia : Time In: 12:37 Anesthesia : Time Out: 12:54 Anesthesia : Total Time: 17 - Total Anesthesia Time Total Anesthesia Time (minutes): 17 - Other Weight: 101.786 kg Height: 5 ft 10 in Body Mass Index (BMI): 32.1 Physical Status: P2 Anesthesia Type: MAC
--- NOTE | 2017-12-30 13:00 | CRNA.PROGR ---
Post Anesthesia Phase II - Post Anesthesia Phase II Patient Stable and Discharged To: Phase II Care Assumed By Surgeon: Arnie Khan MD Temperature: 98.3 F Pulse Rate: 58 Respiratory Rate: 20 Blood Pressure: 99/61 Pulse Ox: 91 Total Shante Score at Discharge: 10 Post Anesthesia Discharge Criteria Met: Yes
[2017-12-30 13:08] VITALS: BP 108/61; RESP 16; TEMP 97.3
[2017-12-30] MEDS: Non-Formulary Drug (Budesonide/Formoterol Fumarate [Symbicort] 2 PUFF) INH SCH (13:24)
--- NOTE | 2017-12-30 13:32 | GEN.OPNOTE ---
Colonoscopy Procedure Note Surgery Date: 12/30/17 Preoperative Diagnosis: Lower GI bleed Postoperative Diagnosis: Sigmoid diverticulosis. AV malformation of the cecum Procedure: Colonoscopy Surgeon: Yo hKan MD Anesthesia Provider: Fior Gardner CRNA Anesthesia Type: MAC Indications: Patient has a GI bleed. Had a normal EGD now needs a colonoscopy rule out lower source. Has a history of AV malformations of the jejunum Findings: Prep : Very good Cecum : Olympus video colonoscopy scope guided all way to cecum. Ileocecal valve clearly identified. Patient had AV malformation the cecum that was across from ileocecal valve. This was not bleeding. There is no evidence that had bled Ascending : Ascending colon appeared be normal Transverse : Transverse colon was within normal limits Sigmoid : Descending colon was disease free. Sigmoid colon had diverticulosis no active bleeding Rectum : Rectum free from disease Digital Rectal Exam : He has some palpable anal papillae that are firm but did not appear to be a disease process. Prostate smooth and regular A lubricated flexible colonoscope was inserted and passed to the blind end of the cecum. Endoscopy Procedures - Endoscopy Procedures Primary Endoscopy Procedure: 46565 : Colonoscopy
--- NOTE | 2017-12-30 13:51 | DCSUMMARY ---
Hospitalization Summary Admit Date: 12/28/2017 Discharge Date: 12/30/17 Hospital Course: Discharge diagnoses 1. Episode of abdominal pain resolved 2. Recent GI bleed 3. Diverticulosis 4. History of for bleeding secondary to AVM in 2017 5. History of hypertension 6. History of chronic renal failure 7. History of hypothyroidism 8. History of peripheral vascular disease 9. Chronic kidney failure stage III 10. History of gout 11. Elevated lipase likely secondary to chronic failure 12. 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 He signed AMA. This time he came in because of abdominal pain of one day duration. [place] in the middle of the abdomen. Stool was more brownish in color compared to the when he was here. He had elevation of lipase. CT of the abdomen with no acute findings was admitted to the hospital. There was a drop in his hemoglobin compared to when he was here in the hospital. We consulted surgery we did put him on some IV fluids and clear liquid. He had a colonoscopy done which showed diverticulosis and AVM In the cecum. The pain subsided the next day. Hemoglobin dropped to 8.5 then stabilized I think it was dilutional on the daty of discharge was 8.7. He was asymptomatic we thought that he could be discharged home and follow-up with his primary. The exact cause of his abdominal pain is unclear. Laboratory Results 12/30/17 Range/Units 04:45 WBC 4.48 L (4.8-10.8) 10^3/uL RBC 2.76 L (4.70-6.10) 10^6/uL Hgb 8.7 L (14.0-18.0) g/dL Hct 26.5 L (42.0-52.0) % MCV 96.0 H (80-90) FL MCH 31.5 H (27-31) PG MCHC 32.8 L (33-37) g/dL RDW Std Deviation 53.2 H (39-50) fL RDW Coeff of [place] 15.9 H (11.5-14.5) % Plt Count 145 (140-350) 10*3/uL MPV 10.0 (7.4-12.2) FL Immature Gran % (Auto) 0.2 (0-5) % Neut % (Auto) 60.7 (50-80) % Lymph % (Auto) 24.1 (10-50) % [place] % (Auto) 8.7 (5-15) % Eos % (Auto) 5.6 (0-8) % Baso % (Auto) 0.7 (0-1) % Immature Gran # (Auto) 0.01 10*3/UL Neut # (Auto) 2.72 10*3/UL Lymph # (Auto) 1.08 10*3/uL [place] # (Auto) 0.39 (0.3-0.8) 10*3/UL Eos # (Auto) 0.25 10*3/UL Baso # (Auto) 0.03 10*3/UL WBC Morphology Comment Normal (NORM) Plt Morphology Comment Normal morphology (NORM) RBC Morph Comment Normal morphology (NORM) discharge suction Diet regular Activity as tolerated Medications Current Medication(s) 3 Medication Instructions Recorded Confirmed Type Colchicine [Mitigare] 1 cap PO QD #90 cap 11/09/16 Clinic Zolpidem Tartrate [Ambien Cr] 1 tab PO QHS #30 tab 11/09/16 Clinic aspirin 81 mg tablet,delayed 81 mg PO QDAY #30 tab 01/31/17 12/28/17 Rx release ferrous sulfate ER 325 mg (65 mg 325 mg PO QDAY #30 cap 01/31/17 12/28/17 History iron) capsule,extended release hydrocodone 5 mg-acetaminophen 325 1 - 2 tab PO Q6H PRN #30 tab 01/31/17 History mg tablet olmesartan 20 mg tablet 20 mg PO QDAY #90 tab 04/22/17 12/28/17 Rx levothyroxine 25 mcg tablet 25 mcg PO QDAY #90 tab 05/14/17 12/28/17 Rx rosuvastatin 40 mg tablet 40 mg PO QPM #90 tab 05/14/17 12/28/17 Rx allopurinol 300 mg tablet 300 mg PO QDAY #90 tab 06/06/17 12/28/17 Rx zolpidem ER 12.5 mg 12.5 mg PO QHS #90 tab 06/06/17 12/28/17 Rx tablet,extended release,multiphase budesonide-formoterol HFA 80 2 puff INH BID #360 puff 07/10/17 12/28/17 Rx mcg-4.5 mcg/actuation aerosol inhaler cholecalciferol (vitamin D3) 5,000 5,000 unit PO QDAY #90 cap 07/10/17 12/28/17 Rx unit capsule ezetimibe 10 mg tablet 10 mg PO QHS #90 tab 07/10/17 12/28/17 Rx fluticasone 50 mcg/actuation nasal 1 spray INASL QD PRN #3 g 07/10/17 12/28/17 History spray,suspension prasugrel 10 mg tablet 10 mg PO QDAY #90 tab 07/10/17 12/28/17 Rx sodium bicarbonate 650 mg tablet 1,300 mg PO QDAY #180 tab 07/10/17 12/28/17 Rx pantoprazole 40 mg tablet,delayed 40 mg PO BID #180 tab 07/17/17 12/28/17 Rx release atenolol 25 mg tablet 25 mg PO QDAY #180 tab 08/16/17 12/28/17 Rx furosemide 20 mg tablet 20 mg PO QDAY #30 tab 08/19/17 12/28/17 Rx indapamide 2.5 mg tablet 5 mg PO QDAY #60 tab 11/20/17 12/28/17 Rx colchicine 0.6 mg capsule 0.6 mg PO QDAY #90 cap 12/02/17 12/28/17 Rx Follow-up with PCP in 1-2 weeks Condition at discharge was stable for discharge Exam - Vitals Vital Signs: Vital Signs Temperature 97.3 F Temperature Source Temporal Artery Scan Pulse Rate [Apical] 70 Pulse Rate [Pulse Oximeter 60 Bilateral Radial] Pulse Rate 58 Respiratory Rate 16 Blood Pressure [Right Arm] 108/61 Blood Pressure [Left Arm] 116/61 Blood Pressure 99/61 Pulse Ox 91 Oxygen Delivery Method Room Air Height 5 ft 10 in Weight 224 lb 6.4 oz - General General Appearance: No Acute Distress, Cooperative - Head Head Exam: Normal Inspection - Eye Eye Exam: POSITIVE: Normal Appearance - ENT ENT Exam: POSITIVE: Normal Exam - Neck Neck Exam: Normal Inspection - Respiratory Respiratory Exam: POSITIVE: Clear to Auscultation - Bilaterally - Cardiovascular Cardiovascular Exam: POSITIVE: RRR - GI/Abdominal GI/Abdominal Exam: POSITIVE: Normal Bowel Sounds, Non Tender, Non Distended, Soft, No Organomegaly - Rectal Rectal Exam: POSITIVE: Deferred - External Exam: POSITIVE: Deferred - Extremities Extremities Exam: POSITIVE: Normal Inspection - Back Back Exam: POSITIVE: Normal Inspection - Neurological Neurological Exam: POSITIVE: Alert, Oriented x 3, CN II-XII Intact, No Facial Droop, Speech Intact / Clear, Moves All Extremities Equally - Psychiatric Psychiatric Exam: POSITIVE: Normal Affect Patient Problems - Patient Problem List (1) Abdominal pain Status: Acute Code(s): R10.9 - Unspecified abdominal pain Category: Medical (2) Essential hypertension Status: Acute Onset Date: 01/17/12 Comment: with a renovascular component; labile Code(s): I10 - Essential (primary) hypertension Category: Medical (3) Acquired hypothyroidism Status: Acute Onset Date: 08/14/16 Code(s): E03.9 - Hypothyroidism, unspecified Category: Medical (4) Elevated pancreatic enzyme Status: Acute Code(s): R74.8 - Abnormal levels of other serum enzymes Category: Medical (5) Hypothyroidism Status: Acute Code(s): E03.9 - Hypothyroidism, unspecified Category: Medical
== END 2017-12-30 14:36 | disposition home or self-care (01) | DRG 392 ==
LOC: ER 13:01 → MED/SURG 15:15 → OPS 12-30 11:47 → MED/SURG 12-30 13:02
PROVIDERS: ADMIT Internal Medicine; ATTEND Internal Medicine

== ENCOUNTER 2018-07-08 09:28 | Inpatient (IN) ==
[2018-07-08] MEDS ORDERED: Sodium Chloride 0.9% 1,000 ML PRIMARY IV ONE (09:51)
--- NOTE | 2018-07-08 09:59 | EKG ---
[address] [address] Measurements Intervals [place] Rate: 69 P: 31 RI: 174 QRS: 57 QRSD: 98 T: 56 QT: 429 QTc: 448 Interpretive Statements SINUS RHYTHM No previous ECG available for comparison Electronically Signed On 07-09-18 13:39:35 MDT by Pete Rice [email or web address]
--- NOTE | 2018-07-08 10:08 | PDOC ---
General Adult HPI - General Chief Complaint: General Medical Stated Complaint: HAS NOT EATEN FOR TWO WEEKS Date Seen by Provider: 07/08/18 Time Seen by Provider: 10:05 Source: POSITIVE: Patient, Other (Family) Exam Limitations: POSITIVE: Clinical condition Nurse's Notes Reviewed & Considered: Yes - History of Present Illness Initial Comment: The patient is a 72-year-old male who is brought to the emergency room by his family with complaints of increased weakness, confusion and no appetite. Apparently the patient has really not eaten anything for the past 2-3 weeks. He has become progressively more weak and confused. He does have some cough which has been ongoing for the past 4 or 5 weeks. He was seen at the walk-in clinic about a week ago and prescribed nebulizer treatments however he did not feel this medication at the pharmacy. He denies any current headache, chest pain, abdominal pain or shortness of breath. He does state he has had some increased swelling in his lower legs. He does have a history of chronic renal failure and is followed by Dr. Gracia in [place]. He was told that he was anemic several m onths ago and needed a blood transfusion. Have you received a tetanus shot in the past 10 years?: No - Patient Home Medications Home Medications: Home Medications Colchicine [Mitigare] 1 cap PO QD #90 cap 11/09/16 Zolpidem Tartrate [Ambien Cr] 1 tab PO QHS #30 tab 11/09/16 aspirin 81 mg tablet,delayed release 81 mg PO QDAY #30 tab 01/31/17 ferrous sulfate ER 325 mg (65 mg iron) capsule,extended release 325 mg PO QDAY #30 cap 01/31/17 cholecalciferol (vitamin D3) 5,000 unit capsule 5,000 unit PO QDAY #90 cap 07/10/17 fluticasone 50 mcg/actuation nasal spray,suspension 1 spray INASL QD PRN #3 g 07/10/17 sodium bicarbonate 650 mg tablet 1,300 mg PO QDAY #180 tab 07/10/17 levothyroxine 25 mcg tablet 25 mcg PO QDAY #90 tab 04/10/18 colchicine 0.6 mg capsule 0.6 mg PO QDAY #90 cap 04/11/18 allopurinol 300 mg tablet 300 mg PO QDAY #90 tab 05/06/18 doxazosin 2 mg tablet 2 mg PO QDAY #90 tab 05/07/18 amlodipine 2.5 mg tablet 2.5 mg PO QDAY 06/04/18 tamsulosin 0.4 mg capsule 0.4 mg PO QDAY 06/04/18 rosuvastatin 40 mg tablet 40 mg PO QDAY #90 tab 06/10/18 ezetimibe 10 mg tablet 10 mg PO QHS #90 tab 06/27/18 indapamide 2.5 mg tablet 5 mg PO QDAY #180 tab 06/27/18 prasugrel 10 mg tablet 10 mg PO QDAY #90 tab 06/27/18 pantoprazole 40 mg tablet,delayed release 40 mg PO BID #180 tab 07/02/18 budesonide-formoterol HFA 80 mcg-4.5 mcg/actuation aerosol inhaler 2 puff INH BID #360 puff 07/07/18 - Patient Allergies Allergies/Adverse Reactions: Allergies Allergy/AdvReac Type Severity Reaction Status Date / Time GIOVANNI Inhibitors AdvReac Intermediate increases Verified 07/08/18 09:39 creat clopidogrel bisulfate AdvReac Intermediate itching Verified 07/08/18 09:39 [From Plavix] niacin AdvReac Intermediate ITCHING Verified 07/08/18 09:39 Past Medical History - heen HEENT History: Hard of Hearing, Dentures/Partials Cardiovascular History: Hypertension, PVD, Hyperlipidemia Additional Cardiovasular History: SUBCLAVIAN ARTERY STENOSIS (RIGHT , BP'S IN LEFT ARM ONLY). INTERMITTENT CLAUDICATION 2007/ RIGHT ILIAC HIGH GRADE STEN OSIS, LEFT IS TOTALLY OCCLUDED. ATHEROSCLEROTIC RENAL ARTERY STENOSI 2006, BILATERAL 80% RIGHT AND 50% LEFT. ANGIOPLASTY ANS STENT TO LEFT RENAL ARTERY IN 2011 Respiratory History: Denies History Gastrointestinal History: GI Bleed Additional Gastrointestinal History: HX OF POLYPS AND ULCERS. GASTRITIS. 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 TONSILLECTOMY Anesthesia Reactions: No Malignant Hyperthermia: No Significant Family History: Heart disease, Cancer Past Medical History Reviewed: Reviewed - No Changes ROS - Limitations ROS Limitations: No Limitations (Patient is somewhat confused however he does answer questions) Constitution: DENIES: Chills, Fever Cardiovascular: REPORTS: Edema. DENIES: Chest Pain Respiratory: REPORTS: Cough Non Productive. DENIES: Shortness Of Breath Neurological: REPORTS: Confusion. DENIES: Headache, Numbness, Weakness (Other than generalized weakness) Gastrointestinal: REPORTS: Other (His stool was checked for occult blood several months ago which was negative). DENIES: Abdominal Pain, Vomitting, Diarrhea, Black Stools, Bloody Stools Endocrine: REPORTS: Fatigue Genitourinary: REPORTS: Denies Symptoms Eyes: REPORTS: Denies Symptoms ENT: REPORTS: Other (He reports that his mouth is dry however he denies pain in his mouth). DENIES: Congestion Skin: DENIES: Rash General Adult Exam - General Appearance General Appearance: POSITIVE: Other (The patient is awake, he did fall asleep once during my questioning. He does appear to be somewhat confused and thought the year was 2019. He did recognize that it was June and that he was in [place] at the hospital.) - HEENT HEENT: POSITIVE: Head Inspection Nml, Eyes Inspection Nml, Dry Mucous Membranes (He has thick foamy saliva in his mouth especially coating his tongue) - Neck Neck: POSITIVE: Normal Inspection. NEGATIVE: Lymphadenopathy - Respiratory Respiratory: POSITIVE: No Respiratory Distress, Breath Sounds Normal - Cardiovascular Cardiovascular: POSITIVE: Regular Rate & Rhythm, No Murmur Peripheral Pulses: Dorsalis-pedis (R): 2+, Dorsalis-pedis (L): 2+ - Abdomen Abdomen: Soft: (All Quadrants), Denies Tenderness: (All Quadrants), No Distention: (All Quadrants) - Skin Skin: POSITIVE: Normal Color, No Rash - Extremities Extremity: Normal ROM: (All Extremities), Normal Inspection: (All Extremities) - Neurological / Psychological Neurological: POSITIVE: cook fish eggs Normal As Tested, Motor Normal, Sensation Normal, Disoriented To Time (Thought the year was 2019 however he did know that it was June), Other (No focal neurologic deficits in extremities). NEGATIVE: Disoriented To Person, Disoriented To Place General Adult Progress - Results Reviewed by me Xrays/CTs/US Reviewed by me: Yes Discussed with Radiologist: Yes Radiology Findings: CT scan of the head shows small vessel ischemic changes with no acute intracranial findings per radiologist. Chest x-ray shows a left lower lobe infiltrate per radiologist. Lab Results Reviewed by Me: Yes Lab Results:: Laboratory Results 07/08/18 07/08/18 07/08/18 10:04 10:04 10:04 WBC 7.87 RBC 4.19 L Hgb 11.0 L Hct 35.5 L MCV 84.7 MCH 26.3 L MCHC 31.0 L RDW Std Deviation 46.8 RDW Coeff of Dee Dee 15.6 H Plt Count 567 H MPV 9.7 Immature Gran % (Auto) 0.5 Neut % (Auto) 78.0 Lymph % (Auto) 14.6 Sutton % (Auto) 4.1 L Eos % (Auto) 2.5 Baso % (Auto) 0.3 Immature Gran # (Auto) 0.04 Neut # (Auto) 6.14 Lymph # (Auto) 1.15 Sutton # (Auto) 0.32 Eos # (Auto) 0.20 Baso # (Auto) 0.02 WBC Morphology Comment Normal morphology Plt Morphology Comment Normal morphology RBC Morph Comment Normal morphology VBG pH VBG pCO2 VBG HCO3 VBG Base Excess Sodium 136 Potassium 4.1 Chloride 101 Carbon Dioxide 19 L Anion Gap 16 BUN 72 H Creatinine 3.5 H Estimated GFR Look Out Tower [employer] Watcher BUN/Creatinine Ratio 20.57 H Glucose 117 H Calculated Osmolality 303.0 H Lactic Acid Calcium 9.7 Magnesium 2.2 Total Bilirubin 0.7 AST 94 H ALT 82 H Alkaline Phosphatase 429 H Troponin I 0.041 H C-Reactive Protein 3.4 H NT-Pro-B Natriuret Pep 704 H Total Protein 7.1 Albumin 3.4 L Globulin 3.7 Albumin/Globulin Ratio 0.90 L TSH 07/08/18 07/08/18 07/08/18 10:04 10:32 10:40 WBC RBC Hgb Hct MCV MCH MCHC RDW Std Deviation RDW Coeff of Dee [place] Plt Count MPV Immature Gran % (Auto) Neut % (Auto) Lymph % (Auto) Sutton % (Auto) Eos % (Auto) Baso % (Auto) Immature Gran # (Auto) Neut # (Auto) Lymph # (Auto) Sutton # (Auto) Eos # (Auto) Baso # (Auto) WBC Morphology Comment Plt Morphology Comment RBC Morph Comment VBG pH 7.40 VBG pCO2 33 L VBG HCO3 20 L VBG Base Excess -5 L Sodium Potassium Chloride Carbon Dioxide Anion Gap BUN Creatinine Estimated GFR BUN/Creatinine Ratio Glucose Calculated Osmolality Lactic Acid 2.4 H Calcium Magnesium Total Bilirubin AST ALT Alkaline Phosphatase Troponin I C-Reactive Protein NT-Pro-B Natriuret Pep Total Protein Albumin Globulin Albumin/Globulin Ratio TSH 4.63 H CBC and BMP: 07/08/18 10:04 07/08/18 10:04 EKG Interpretation:: POSITIVE: Normal Sinus Rhythm, Normal Rate, Normal QRS, Normal ST/T - Patient's Progress MDM / ED Course: An IV was established, blood cultures lactate and venous blood gas were drawn with initial IV start. He did receive 1 L bolus of normal saline. His EKG shows a normal sinus rhythm with no acute ST segment or T-wave changes. Shortly after he arrived here his oxygen saturations dropped into the low to mid 80s while he was sleeping and he was placed on O2 per nasal cannula. His blood work reveals a troponin which is mildly elevated at 0.041. His white count is normal. His venous blood gas shows a normal pH. His lactate is mildly elevated at 2.4. His BUN is 74 with a creatinine of 3.5. His baseline creatinine is usually around 2.5. Electrolytes are unremarkable with a normal potassium. His liver enzymes are mildly elevated with a normal bilirubin and alkaline phosphatase of 460. I did discuss these findings with the patient and his daughter. After administration of fluids the patient appeared to be feeling better. He was more alert. His daughter does have power of title attorney and she h ad relayed his wishes to be a DO NOT RESUSCITATE. I did discuss briefly if the patient would ever consider dialysis if there was a need and he said "F" no. The patient was treated for pneumonia with Rocephin 1 g IV and Zithromax 500 mg IV. He also received a DuoNeb for persistent cough here in the emergency department. I did discuss the patient with Dr. Silva and he has agreed to admit the patient for further care. - Consult Counseled: POSITIVE: Patient, Family, RE: Lab Results, RE: Radiology Results, RE: DX, RE: Need for F/U Patient Care Time - Estimated PCT Patient Care Time (In Minutes): 35 Vital Signs - Recent Vital Signs Vital Signs: Vital Signs (Last 8 hours) Temp Pulse Pulse Resp BP Pulse Ox 07/08/18 11:47 67 18 100 07/08/18 11:46 67 20 96 07/08/18 09:37 96.5 F L 95 20 106/69 93 - VS Reviewed Vital Signs Reviewed: Yes Discharge Clinical Impression: Dehydration, Pneumonia, Renal failure, Elevated troponin, Chronic renal failure Discharge Disposition: Admit to Inpatient Condition: Fair Follow Up With: STEPHANY WHALEN [Primary Care Provider] - Date Decision to Admit to Inpatient: 07/08/18 Time Decision to Admit to Inpatient: 11:30
[2018-07-08 10:13] LABS: BASOPHILS # (AUTO) 0.02 10*3/UL; BASOPHILS % (AUTO) 0.3 % (0-1); EOSINOPHILS % (AUTO) 2.5 % (0-8); Hematocrit [HCT] 35.5 % (42.0-52.0); LYMPHOCYTES # (AUTO) 1.15 10*3/uL; MEAN CORPUSCULAR HEMOGLOBIN 26.3 PG (27-31); MEAN CORPUSCULAR VOLUME 84.7 FL (80-90); MEAN PLATELET VOLUME 9.7 FL (7.4-12.2); MONOCYTES # (AUTO) 0.32 10*3/UL (0.3-0.8); MONOCYTES % (AUTO) 4.1 % (5-15); NEUTROPHILS # (AUTO) 6.14 10*3/UL; RED BLOOD COUNT 4.19 10^6/uL (4.70-6.10)
[2018-07-08 10:15] LABS: PLATELET MORPHOLOGY COMMENT NORMAL MORPHOLOGY (NORM); RBC MORPHOLOGY COMMENT NORMAL MORPHOLOGY (NORM); WBC MORPHOLOGY COMMENT NORMAL MORPHOLOGY (NORM)
[2018-07-08 10:27] LABS: BLOOD UREA NITROGEN 72 mg/dL (7-22); BUN/CREATININE RATIO 20.57 (6-20); SERUM ALBUMIN 3.4 g/dL (3.5-4.8)
--- NOTE | 2018-07-08 10:42 | DI ---
CT Head WO Contrast,07/08/2018 9:51 AM: Clinical History: Confusion Previous Exam: February 12, 2008 Findings: Multiple helically acquired CT images are obtained through the brain without contrast, and demonstrat e decreased density within the left periventricular white matter. This is most consistent with a prio r area of ischemia. There is no mass, hemorrhage or midline shift. The surrounding soft tissue and osseous structures are unremarkable. Impression: Mild periventricular hypodensity most consistent with small vessel splenic change. No acute intracranial pathology.
--- NOTE | 2018-07-08 10:46 | DI ---
XR CXR 1VW,07/08/2018 9:51 AM: Clinical History: Abdominal pain Previous Exam: None at this facility. Findings: A single frontal radiograph of the chest is obtained, and demonstrates airspace disease within left l kayleigh base. The cardiomediastinum and bony thorax are unremarkable. Impression: Airspace disease within the left lung base. There is some silhouetting of the left heart border. This is most consistent with left lower lobe pneumonia.
[2018-07-08 11:14] LABS: VENOUS PH 7.4 (7.32-7.42)
[2018-07-08] MEDS ORDERED: IPRATROPIUM/ALBUTEROL SULFATE 3 ML NEB NEB ONE (11:23)
[2018-07-08] MEDS ORDERED: cefTRIAXone Inj 1 GM in Sodium Chloride 0.9% 100 ML IV ONE (11:23)
--- NOTE | 2018-07-08 13:20 | PDOC ---
HPI - History of Present Illness Date of Service: 07/08/18 Time of Service: 13:00 Chief Complaint: Weakness, decreased energy, decreased appetite of 2 weeks duration. Cough of 2 months duration History of Present Illness: This is a 72 years old male with medical history significant for history of peripheral vascular disease with previous stents, hypothyroidism, hypertension, history of gout, history of chronic renal failure who was brought to the hospital for evaluation by the family because of decreased energy, weakness and no appetite. Patient is not eating the last 2 weeks according to the family and becoming progressively weak. They didn notice a cough for 2 months. He was at the urgent clinic about a week ago he was prescribed a nebulizer treatment he did not get it. He was brought to the hospital, evaluation in the ER revealed worsening renal failure, and pneumonia he was given IV antibiotics and was admitted. Currently his main complaint is weakness and decreased energy. He denied other symptoms like nausea, vomiting or diarrhea. No abdominal pain. Past Medical History Medical History: 1. Hypertension. 2. Chronic renal failure stage III. 3. History of gout. 4. Peripheral vascular disease status post stenting of the left external and internal iliac arteries and right femoral artery in 2012. Stent in the right anterior tibial and tibioperoneal arteries in 2013, he had interventions to the left renal, left superficial femoral artery and left external iliac artery in 2015. 5. Left renal stenting in 2011. 6. History of TIA. 7. Hearing loss on the left ear. 8. Hyperlipidemia. 9. History of bleeding duodenal ulcer. 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 11. Alcohol-induced seizure. 12. History of transient ischemic attacks. 13. Hypothyroid. 14. 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 Surgical History: 1. History of left carotid endarterectomy 2006, history of for right carotid endarterectomy 2007. 2. Left renal stent. 3. Peripheral vascular disease and multiple stenting. 4. Colonoscopy in 2014 with a history of colonic polyp removal. 5. Esophagogastroduodenoscopy in 2014 and July 2016. Bleeding duodenal ulcer. 6. Tonsillectomy and adenoidectomy. 7. Surgical treatment of ureteral stenosis. 8. History of hemorrhoidectomy Pertinent Family History: Father at age 70 of [place], mother from lung cancer. Past Social History: Used to smoke, doesn't drink nor drugs. Tobacco Use: Former Smoker In the Past 12 Months, Have Used or Abuse Any of the Following Substance: None Medication / Allergies Home Medications: Home Medications Medication Instructions Recorded Confirmed Type Colchicine [Mitigare] 1 cap PO QD #90 cap 11/09/16 Clinic Zolpidem Tartrate [Ambien Cr] 1 tab PO QHS #30 tab 11/09/16 Clinic aspirin 81 mg tablet,delayed 81 mg PO QDAY #30 tab 01/31/17 07/08/18 Rx release ferrous sulfate ER 325 mg (65 mg 325 mg PO QDAY #30 cap 01/31/17 07/08/18 History iron) capsule,extended release cholecalciferol (vitamin D3) 5,000 5,000 unit PO QDAY #90 cap 07/10/17 07/08/18 Rx unit capsule fluticasone 50 mcg/actuation nasal 1 spray INASL QD PRN #3 g 07/10/17 07/08/18 History spray,suspension sodium bicarbonate 650 mg tablet 1,300 mg PO QDAY #180 tab 07/10/17 07/08/18 Rx levothyroxine 25 mcg tablet 25 mcg PO QDAY #90 tab 04/10/18 07/08/18 Rx colchicine 0.6 mg capsule 0.6 mg PO QDAY #90 cap 04/11/18 07/08/18 Rx allopurinol 300 mg tablet 300 mg PO QDAY #90 tab 05/06/18 07/08/18 Rx doxazosin 2 mg tablet 2 mg PO QDAY #90 tab 05/07/18 07/08/18 Rx amlodipine 2.5 mg tablet 2.5 mg PO QDAY 06/04/18 07/08/18 History tamsulosin 0.4 mg capsule 0.4 mg PO QDAY 06/04/18 07/08/18 History rosuvastatin 40 mg tablet 40 mg PO QDAY #90 tab 06/10/18 07/08/18 Rx ezetimibe 10 mg tablet 10 mg PO QHS #90 tab 06/27/18 07/08/18 Rx indapamide 2.5 mg tablet 5 mg PO QDAY #180 tab 06/27/18 07/08/18 Rx prasugrel 10 mg tablet 10 mg PO QDAY #90 tab 06/27/18 07/08/18 Rx pantoprazole 40 mg tablet,delayed 40 mg PO BID #180 tab 07/02/18 07/08/18 Rx release budesonide-formoterol HFA 80 2 puff INH BID #360 puff 07/07/18 07/08/18 Rx mcg-4.5 mcg/actuation aerosol inhaler Allergies/Adverse Reactions: Allergies Allergy/AdvReac Type Severity Reaction Status Date / Time GIOVANNI Inhibitors AdvReac Intermediate increases Verified 07/08/18 13:24 creat clopidogrel bisulfate AdvReac Intermediate itching Verified 07/08/18 13:24 [From Plavix] niacin AdvReac Intermediate ITCHING Verified 07/08/18 13:24 Review of Systems - Review of Systems All Systems: Reviewed & No Additional Complaints Except as Stated Exam - Vitals Vital Signs: Vital Signs Temperature 96.5 F Temperature Source Temporal Artery Scan Pulse Rate [Pulse Oximeter 95 Right] Pulse Rate 67 Respiratory Rate 18 Blood Pressure [Left Arm] 106/69 Pulse Ox 100 Oxygen Delivery Method Room Air Height 6 ft Weight 204 lb - General Additional General Exam Details: Looks tired - Head Head Exam: Normal Inspection - Eye Eye Exam: POSITIVE: Normal Appearance - ENT ENT Exam: POSITIVE: Normal Exam - Neck Neck Exam: Normal Inspection - Respiratory Additional Respiratory Exam Details: Decreased air entry with crackles at the lung bases more on the left compared to the right - Cardiovascular Cardiovascular Exam: POSITIVE: RRR - GI/Abdominal GI/Abdominal Exam: POSITIVE: Normal Bowel Sounds, Non Tender, Non Distended, Soft, No Organomegaly - Rectal Rectal Exam: POSITIVE: Deferred - External Exam: POSITIVE: Deferred Exam: POSITIVE: Deferred - Extremities Extremities Exam: POSITIVE: Normal Inspection - Back Back Exam: POSITIVE: Normal Inspection - Neurological Neurological Exam: POSITIVE: Alert, CN II-XII Intact, No Facial Droop, Speech Intact / Clear, Moves All Extremities Equally - Psychiatric Psychiatric Exam: POSITIVE: Normal Affect - Integumentary Integumentary Exam: POSITIVE: Normal Color Results - Labs CBC and BMP: 07/08/18 10:04 07/08/18 10:04 - Imaging Status: Report Reviewed by Me (CT head Mild periventricular hypodensity most consistent with small vessel splenic change. No acute intracranial pathology Chest X ray Airspace disease within the left lung base. There is some silhouetting of the left heart border. This is most consistent with left lower lobe pneumonia.) Assessment and Plan - Patient Problems (1) Pneumonia Current Visit: Yes Status: Acute Comment: He was started on IV antibiotics will continue with antibiotics Code(s): J18.9 - Pneumonia, unspecified organism (2) Acute on chronic renal failure Current Visit: Yes Status: Acute Comment: I think there is an elements of acute worsening of his renal failure may be secondary to his decreased intake will hydrate him and repeat his labs tomorrow Code(s): N17.9 - Acute kidney failure, unspecified; N18.9 - Chronic kidney disease, unspecified (3) Abnormal LFTs Current Visit: Yes Status: Acute Comment: His LFTs are abnormal, we'll hold his statin, will do a CT of his chest and also include also the abdomen. May consider ultrasound of his abdomen tomorrow. Code(s): R94.5 - Abnormal results of liver function studies (4) Essential hypertension Current Visit: No Status: Acute Onset Date: 01/17/12 Comment: We'll resume his amlodipine Code(s): I10 - Essential (primary) hypertension (5) Hypothyroidism Current Visit: No Status: Acute Comment: T4 is somewhat elevated I think we'll hold his thyroxine for now Code(s): E03.9 - Hypothyroidism, unspecified
[2018-07-08] MEDS ORDERED: LIDOCAINE W/ SODIUM BICARB 0.5 ML SYR SUBD PRN (14:37)
[2018-07-08] MEDS: Sodium Chloride 0.9% 1,000 ML PRIMARY IV SCH (14:50)
--- NOTE | 2018-07-08 17:44 | DI ---
CT Chest WO Contrast,07/08/2018 3:22 PM: Clinical History: Weakness, decreased appetite and crackles bilaterally. Previous Exam: None at this facility. Findings: Multiple helically acquired CT images are obtained through the chest without contrast. The thyroid is normal. There is no mediastinal lymphadenopathy. There is airspace disease within the lung bases as well as some subsegmental atelectasis in the lingu la. There is no pleural effusion. Skeletal structures are unremarkable. Vertebral body height is preserved. Intervertebral disc height is also preserved. The lung apices are clear. Peripheral vascular calcifications are noted. There are multiple coronary artery calcifications. Impression: Airspace disease within the lung bases bilaterally to include some airspace disease within the left u pper lobe and within the lingula. This is most consistent with a diffuse infectious process. This cou ld be an atypical infectious process.
--- NOTE | 2018-07-08 17:48 | DI ---
CT Abdomen/Pelvis WO Contrast,07/08/2018 3:21 PM: Clinical History: Weakness, decreased appetite and abnormal liver function tests. Previous Exam: December 28, 2017 Findings: Multiple helically acquired CT images are obtained through the abdomen and pelvis without contrast. There is some airspace disease in the lung bases. A few peripheral vascular desiccation is seen. The urinary bladder is unremarkable. Colonic diverticula are noted without evidence of acute divertic ulitis. The liver, spleen, pancreas, adrenals and kidneys are grossly normal. There is no obstructive uropath y. There are some scattered lymph nodes in the periportal area which are nonpathologic by size criteria. Degenerative changes of the spine are noted. The gallbladder is normal. Impression: No acute intra-abdominal pathology.
[2018-07-08] MEDS ORDERED: ARFORMOTEROL NEB SOLN 15 MCG/2 ML NEB SCH (19:00)
[2018-07-08] MEDS: PANTOPRAZOLE 40 MG TABLET PO SCH (20:13)
[2018-07-08] MEDS: TAMSULOSIN 0.4 MG CAPSULE PO SCH (20:13)
[2018-07-08] MEDS: EZETIMIBE 10 MG TABLET PO SCH (20:13)
[2018-07-08] MEDS ORDERED: Non-Formulary Drug (Budesonide/Formoterol Fumarate [Symbicort] 2 PUFF) INH SCH (21:00)
[2018-07-09] MEDS: Sodium Chloride 0.9% 1,000 ML PRIMARY IV SCH ×2 (00:03→09:40)
[2018-07-09] MEDS: BUDESONIDE 0.25 MG/2 ML AMPUL.NEB NEB SCH ×3 (05:16→18:47)
[2018-07-09 05:20] LABS: BLOOD UREA NITROGEN 63 mg/dL (7-22); BUN/CREATININE RATIO 21.72 (6-20); SERUM ALBUMIN 2.9 g/dL (3.5-4.8)
[2018-07-09 05:27] LABS: Hematocrit [HCT] 28.5 % (42.0-52.0); MEAN CORPUSCULAR HEMOGLOBIN 27.4 PG (27-31); MEAN CORPUSCULAR HGB CONC 31.6 g/dL (33-37); MEAN CORPUSCULAR VOLUME 86.6 FL (80-90); MEAN PLATELET VOLUME 9.8 FL (7.4-12.2); RED BLOOD COUNT 3.29 10^6/uL (4.70-6.10)
[2018-07-09 05:44] LABS: BAND NEUTROPHILS % 0 % (0-10); BASOPHILS % (MANUAL) 1 % (0-1); EOSINOPHILS % (MANUAL) 3 % (0-8); MONOCYTES % (MANUAL) 8 % (0-12); NEUTROPHILS % (MANUAL) 75 % (50-80); PLATELET MORPHOLOGY COMMENT NORMAL MORPHOLOGY (NORM); RBC MORPHOLOGY COMMENT NORMAL MORPHOLOGY (NORM); WBC MORPHOLOGY COMMENT NORMAL MORPHOLOGY (NORM)
--- NOTE | 2018-07-09 09:07 | PDOC(PROG) ---
Date of Service: 07/09/18 Time of Service: 08:30 Interval History: Subjective Patient feels a little bit better today compared to yesterday. His breathing he said is on and off, he is still coughing. No pain. Objective : Data - Labs CBC and BMP: 07/09/18 04:12 07/09/18 04:12 Objective : Exam - General General Appearance: No Acute Distress, Cooperative - Head Head Exam: Normal Inspection - Eye Eye Exam: Normal Appearance - ENT ENT Exam: Normal Exam - Neck Neck Exam: Normal Inspection - Respiratory Additional Respiratory Exam Details: Crackles heard at both bases - Cardiovascular Cardiovascular Exam: RRR - GI/Abdominal GI/Abdominal Exam: Normal Bowel Sounds, Non Tender, Non Distended, Soft, No Organomegaly - Rectal Rectal Exam: Deferred - External Exam: Deferred - Extremities Extremities Exam: Normal Inspection - Back Back Exam: Normal Inspection - Neurological Neurological Exam: Alert, Oriented x 3, Normal Gait, No Facial Droop, Speech Intact / Clear, Moves All Extremities Equally - Psychiatric Psychiatric Exam: Normal Affect Assessment and Plan - Patient Problems (1) Pneumonia Current Visit: Yes Status: Acute Comment: Continue antibiotics with Rocephin and Zithromax Code(s): J18.9 - Pneumonia, unspecified organism (2) Acute on chronic renal failure Current Visit: Yes Status: Acute Comment: Kidney function is slightly better compared to yesterday will cut back on the fluid and repeat his labs tomorrow. Code(s): N17.9 - Acute kidney failure, unspecified; N18.9 - Chronic kidney disease, unspecified (3) Abnormal LFTs Current Visit: Yes Status: Acute Comment: LFTs are better today compared to yesterday. The CT of the abdomen did not show significant findings. Continue holding Crestor. Code(s): R94.5 - Abnormal results of liver function studies (4) Essential hypertension Current Visit: No Status: Acute Onset Date: 01/17/12 Comment: Same medications Code(s): I10 - Essential (primary) hypertension (5) Hypothyroidism Current Visit: No Status: Acute Comment: Continue holding the levothyroxin today Code(s): E03.9 - Hypothyroidism, unspecified (6) Anemia Current Visit: Yes Status: Acute Comment: He had history of anemia before at one point in time he had GI bleed. He also has chronic renal failure will watch hemoglobin. Code(s): D64.9 - Anemia, unspecified
[2018-07-09] MEDS: AmLODIPine Tab 2.5 MG TABLET PO SCH (09:48)
[2018-07-09] MEDS: ASPIRIN EC 81 MG TABLET PO SCH (09:48)
[2018-07-09] MEDS: PRASUGREL HCL 10 MG PO SCH (09:49)
[2018-07-09] MEDS: PANTOPRAZOLE 40 MG TABLET PO SCH ×2 (09:51→20:53)
[2018-07-09] MEDS: Sodium Bicarbonate Tab 650 MG TAB PO SCH (09:52)
[2018-07-09] MEDS: ALLOPURINOL 300 MG TABLET PO SCH (09:52)
[2018-07-09] MEDS: CHOLECALCIFEROL 1000 IU TABLET PO SCH (09:52)
[2018-07-09] MEDS: cefTRIAXone Inj 2 GM in Sodium Chloride 0.9% 100 ML IV SCH (11:16)
[2018-07-09] MEDS ORDERED: cefTRIAXone Inj 2 GM in Sodium Chloride 0.9% 100 ML IV SCH (13:00)
[2018-07-09] MEDS: TAMSULOSIN 0.4 MG CAPSULE PO SCH (20:53)
[2018-07-09] MEDS: EZETIMIBE 10 MG TABLET PO SCH (20:53)
[2018-07-10] MEDS: Sodium Chloride 0.9% 1,000 ML PRIMARY IV SCH (04:04)
[2018-07-10 05:10] LABS: BASOPHILS # (AUTO) 0.01 10*3/UL; BASOPHILS % (AUTO) 0.2 % (0-1); EOSINOPHILS # (AUTO) 0.24 10*3/UL; EOSINOPHILS % (AUTO) 3.9 % (0-8); Hematocrit [HCT] 27.9 % (42.0-52.0); Hemoglobin [HGB] 8.1 g/dL (14.0-18.0); LYMPHOCYTES # (AUTO) 0.92 10*3/uL; MEAN CORPUSCULAR VOLUME 89.7 FL (80-90); MEAN PLATELET VOLUME 9.9 FL (7.4-12.2); MONOCYTES # (AUTO) 0.31 10*3/UL (0.3-0.8); NEUTROPHILS # (AUTO) 4.65 10*3/UL; NEUTROPHILS % (AUTO) 75.6 % (50-80); RED BLOOD COUNT 3.11 10^6/uL (4.70-6.10)
[2018-07-10 05:28] LABS: PLATELET MORPHOLOGY COMMENT NORMAL MORPHOLOGY (NORM); RBC MORPHOLOGY COMMENT NORMAL MORPHOLOGY (NORM); WBC MORPHOLOGY COMMENT NORMAL MORPHOLOGY (NORM)
[2018-07-10 05:31] LABS: BLOOD UREA NITROGEN 55 mg/dL (7-22); BUN/CREATININE RATIO 22.91 (6-20); SERUM ALBUMIN 2.6 g/dL (3.5-4.8)
[2018-07-10] MEDS: BUDESONIDE 0.25 MG/2 ML AMPUL.NEB NEB SCH ×2 (06:42→19:11)
[2018-07-10] MEDS: LEVALBUTEROL HCL 0.63 MG/3 ML NEB PRN (06:43)
--- NOTE | 2018-07-10 08:31 | PDOC(PROG) ---
Date of Service: 07/10/18 Time of Service: 08:30 Interval History: Subjective Patient feels better today compared to yesterday. He is denying pain. Cough seems to be improved. No shortness of breath. Appetite maybe a little bit better. He said he doesn't eat much anyway. Objective : Data - Labs CBC and BMP: 07/10/18 04:07 07/10/18 04:07 Objective : Exam - General General Appearance: No Acute Distress, Cooperative - Head Head Exam: Normal Inspection - Eye Eye Exam: Normal Appearance - ENT ENT Exam: Normal Exam - Neck Neck Exam: Normal Inspection - Respiratory Respiratory Exam: Clear to Auscultation - Bilaterally - Cardiovascular Cardiovascular Exam: RRR - GI/Abdominal GI/Abdominal Exam: Normal Bowel Sounds, Non Tender, Non Distended, Soft, No Organomegaly - Rectal Rectal Exam: Deferred - External Exam: Deferred - Extremities Extremities Exam: Normal Inspection - Back Back Exam: Normal Inspection - Neurological Neurological Exam: Alert, Oriented x 3, CN II-XII Intact, No Facial Droop, Speech Intact / Clear - Psychiatric Psychiatric Exam: Normal Affect Assessment and Plan - Patient Problems (1) Pneumonia Current Visit: Yes Status: Acute Comment: Continue IV antibiotics with Rocephin and Zithromax. He is weaker last PT and OT to work with him. Code(s): J18.9 - Pneumonia, unspecified organism (2) Acute on chronic renal failure Current Visit: Yes Status: Acute Comment: Seem to be improved back to baseline I think will DC the fluid. Code(s): N17.9 - Acute kidney failure, unspecified; N18.9 - Chronic kidney disease, unspecified (3) Abnormal LFTs Current Visit: Yes Status: Acute Comment: Seem to be improved Code(s): R94.5 - Abnormal results of liver function studies (4) Essential hypertension Current Visit: No Status: Acute Onset Date: 01/17/12 Comment: Same med Code(s): I10 - Essential (primary) hypertension (5) Hypothyroidism Current Visit: No Status: Acute Comment: Continue holding levothyroxin. Code(s): E03.9 - Hypothyroidism, unspecified (6) Anemia Current Visit: Yes Status: Acute Comment: History of anemia from before, there is a drop in his hemoglobin by thinks probably dilutional. Continue watching his hemoglobin. Code(s): D64.9 - Anemia, unspecified
[2018-07-10] MEDS: AmLODIPine Tab 2.5 MG TABLET PO SCH (09:06)
[2018-07-10] MEDS: ALLOPURINOL 300 MG TABLET PO SCH (09:07)
[2018-07-10] MEDS: Sodium Bicarbonate Tab 650 MG TAB PO SCH (09:07)
[2018-07-10] MEDS: ASPIRIN EC 81 MG TABLET PO SCH (09:07)
[2018-07-10] MEDS: PRASUGREL HCL 10 MG PO SCH (09:07)
[2018-07-10] MEDS: CHOLECALCIFEROL 1000 IU TABLET PO SCH (09:07)
[2018-07-10] MEDS: PANTOPRAZOLE 40 MG TABLET PO SCH ×2 (09:07→20:04)
--- NOTE | 2018-07-10 11:06 | PTI REPORT ---
Thank you for the referral of Arthur Belcher. He was seen on 07/10/18 for an inpatient evaluation secondary to weakness. SUBJECTIVE: The patient is a 72-year-old male who was admitted to the hospital on 07/08/2018 secondary to a diagnosis of pneumonia. The patient states that he has been doing better since being hospitalized but is still having some coughing. The patient is on three liters of oxygen at this time but states that he does not normally use oxygen at home. The patient is hoping to get better soon so that he can get back to his job and also back home. The patient states that he lives here in [place]. He states that he lives by himself and is independent with all ADLs. The patient states that he does not use an assistive device for ambulation. He has no stairs within his home but has two stairs to get into his home. The patient states that he has had one fall which happened last week. He is not exactly sure what happened, but denies any injury from his fall and states that this is not a common occurrence. PAST MEDICAL HISTORY: Past medical history can be found in the patient's medical record. OBJECTIVE FINDINGS: General observations: The patient was alert and oriented to setting upon PT arrival. Bed mobility: The patient was able to independently transfer from supine to seated edge of bed. The patient demonstrated good seated edge of bed balance. Strength: While seated edge of bed a manual muscle test was performed and the patient demonstrates 4/5 bilateral lower extremity strength. Transfers: The patient was able to independently perform a sit to stand transfer and demonstrated good initial standing balance. Once in a standing position the patient was able to bend down to reach objects off the ground without any complaints of lightheadedness or dizziness and was able to complete the activity safely. The patient was able to perform a stand to seated transfer independently. Ambulation: The patient was able to ambulate 150 feet with contact guard assist x1 for safety and 3 liters of oxygen. He demonstrated good mobility. Once back in his room his oxygen saturation was down to 82%. The patient did require verbal cues for proper breathing techniques. Following ambulation the patient did state that his legs were sore as he states he has claudication in both legs and is unable to ambulate much further than the 150 feet without increases in pain. ASSESSMENT: The patient has good rehab potential. Problem List: Decreased endurance/activity tolerance Patient will be educated in energy conservation techniques Physical Therapy Goals: To be met by discharge from inpatient: Patient will be able to ambulate 150 feet safely and independently and maintain oxygen saturation above 90%. Patient will be able to ascend and descend at least three stairs safely and independently and maintain oxygen saturation above 90%. Patient will be educated on energy conservation and breathing techniques to maintain oxygen saturation above 90% with exertion. TREATMENT PLAN: Patient will be seen B.I.D during the week and one time per day over the weekend as an inpatient to address the above goals and objectives. INITIAL TREATMENT: Treatment today consisted of the initial evaluation. Following treatment the patient was left seated edge of bed with call light within reach and bed alarm set. MTDD
[2018-07-10] MEDS: cefTRIAXone Inj 2 GM in Sodium Chloride 0.9% 100 ML IV SCH (13:09)
--- NOTE | 2018-07-10 17:09 | OT.PROG ---
Progress Note Progress Note: S: Pt. stated he thought energy conservation would benefit him and he would try to use it. O: Pt. participated in 30 min skilled OT session for increase energy conservation education and increase in activity tolerance. Pt. was educated on breathing techniques, environment changes, and the importance of taking rest breaks to increase energy conservation awareness. Pt. stated he understood all techniques and would try them throughout the day. Pt. participated in shoulder flexion, internal rotation, external rotation, and elbow extension and flexion red theraband exercises x10 each. Pt. O2 levels recorded 96 prior to exercise and post exercise was recorded at 92 O2 while using 3 L of O2. Pt. was left lying down in bed with tab and call light on him. A: Decreased levels during exercise places a concern for the patients activity tolerance. Pt. ability to participate in 5 theraband exercises without c/o fatigue demonstrates progress. Pt. wiliness to participate in energy conservation techniques demonstrates potential for increased activity tolerance. Pt. would benefit from continued skilled OT service for increase activity tolerance. P: Continue skilled OT 3x/day until discharge for increase in activity tolerance to increase work and IADL participation.
[2018-07-10] MEDS: TAMSULOSIN 0.4 MG CAPSULE PO SCH (20:04)
[2018-07-10] MEDS: EZETIMIBE 10 MG TABLET PO SCH (20:04)
[2018-07-11 05:04] LABS: BASOPHILS # (AUTO) 0.01 10*3/UL; BASOPHILS % (AUTO) 0.1 % (0-1); EOSINOPHILS # (AUTO) 0.25 10*3/UL; Hematocrit [HCT] 27.8 % (42.0-52.0); Hemoglobin [HGB] 8.2 g/dL (14.0-18.0); LYMPHOCYTES # (AUTO) 1.09 10*3/uL; MEAN CORPUSCULAR HEMOGLOBIN 25.5 PG (27-31); MEAN CORPUSCULAR HGB CONC 29.5 g/dL (33-37); MEAN CORPUSCULAR VOLUME 86.6 FL (80-90); MEAN PLATELET VOLUME 9.6 FL (7.4-12.2); MONOCYTES # (AUTO) 0.35 10*3/UL (0.3-0.8); MONOCYTES % (AUTO) 4.3 % (5-15); NEUTROPHILS # (AUTO) 6.49 10*3/UL; NEUTROPHILS % (AUTO) 79.2 % (50-80); RED BLOOD COUNT 3.21 10^6/uL (4.70-6.10)
[2018-07-11 05:07] LABS: PLATELET MORPHOLOGY COMMENT NORMAL MORPHOLOGY (NORM); RBC MORPHOLOGY COMMENT NORMAL MORPHOLOGY (NORM); WBC MORPHOLOGY COMMENT NORMAL MORPHOLOGY (NORM)
[2018-07-11 05:26] LABS: BLOOD UREA NITROGEN 51 mg/dL (7-22)
[2018-07-11] MEDS: LEVALBUTEROL HCL 0.63 MG/3 ML NEB PRN (06:45)
[2018-07-11] MEDS: BUDESONIDE 0.25 MG/2 ML AMPUL.NEB NEB SCH (06:45)
[2018-07-11] MEDS: Sodium Bicarbonate Tab 650 MG TAB PO SCH (08:34)
[2018-07-11] MEDS: CHOLECALCIFEROL 1000 IU TABLET PO SCH (08:34)
[2018-07-11] MEDS: PRASUGREL HCL 10 MG PO SCH (08:34)
[2018-07-11] MEDS: AmLODIPine Tab 2.5 MG TABLET PO SCH (08:34)
[2018-07-11] MEDS: ASPIRIN EC 81 MG TABLET PO SCH (08:34)
[2018-07-11] MEDS: ALLOPURINOL 300 MG TABLET PO SCH (08:34)
[2018-07-11] MEDS: PANTOPRAZOLE 40 MG TABLET PO SCH (08:34)
--- NOTE | 2018-07-11 09:04 | DCSUMMARY ---
Hospitalization Summary Admit Date: 07/08/2018 Discharge Date: 07/11/18 Hospital Course: Discharge diagnoses 1. Pneumonia 2. Acute on chronic renal failure 3. Abnormal LFTs improved 4. History of hypertension 5. Hypothyroidism 6. History of peripheral vascular disease with multiple stents in the past 7. History of TIA 8. History of bleeding duodenal ulcer 9. History of gout Hospital course This is a 72 years old male with medical history significant for history of peripheral vascular disease with previous stents, hypothyroidism, hypertension, history of gout, history of chronic renal failure was brought to the hospital for evaluation and family because of decreased energy, weakness and no appetite. Patient was not eating well the last 2 weeks. He got progressively weak. He did report cough for about 2 months. He was at the urgent clinic a week before admission he was prescribed nebulizer treatment. he did not get it. He was brought to the hospital for evaluation and that showed worsening renal failure and pneumonia. He was admitted to the hospital put on IV antibiotic and also was hydrated. With time things started to improve. The PCR panel showed adenovirus. A CT of the chest showed Airspace disease within the lung bases bilaterally to include some airspace disease within the left upper lobe and within the lingula. He did have abnormal LFT which started to improve gradually. On the day of discharge he was feeling a lot better he said his exam showed improvement compared to when he came still had some crackles at the bases. But overall he looked better he felt better we thought he could be discharged home. He'll finish his course of antibiotic as an outpatient. He remained hypoxic and needed some oxygen. He need follow-up with his primary post discharge. His kidney function also improved with hydration. His T4 was elevated when he came in so we held his the levothyroxin while he was here. This need to be followed up later on as an outpatient. Laboratory Results 07/11/18 07/11/18 04:24 04:24 WBC 8.20 RBC 3.21 L Hgb 8.2 L Hct 27.8 L MCV 86.6 MCH 25.5 L MCHC 29.5 L RDW Std Deviation 47.0 RDW Coeff of [place] 15.6 H Plt Count 426 H MPV 9.6 Immature Gran % (Auto) 0.1 Neut % (Auto) 79.2 Lymph % (Auto) 13.3 [place] % (Auto) 4.3 L Eos % (Auto) 3.0 Baso % (Auto) 0.1 Immature Gran # (Auto) 0.01 Neut # (Auto) 6.49 Lymph # (Auto) 1.09 [place] # (Auto) 0.35 Eos # (Auto) 0.25 Baso # (Auto) 0.01 WBC Morphology Comment Normal morphology Plt Morphology Comment Normal morphology RBC Morph Comment Normal morphology Sodium 138 Potassium 4.7 Chloride 110 Carbon Dioxide 23 Anion Gap 5 BUN 51 H Creatinine 2.0 H Estimated GFR [place] Dredger BUN/Creatinine Ratio 25.50 H Glucose 100 Calculated Osmolality 299.0 H Calcium 8.3 L Discharge suction Diet regular Activity as tolerated Medications Current Medication(s) Medication Instructions Recorded Confirmed Type Colchicine [Mitigare] 1 cap PO QD #90 cap 11/09/16 Clinic Zolpidem Tartrate [Ambien Cr] 1 tab PO QHS #30 tab 11/09/16 Clinic aspirin 81 mg tablet,delayed 81 mg PO QDAY #30 tab 01/31/17 07/08/18 Rx release ferrous sulfate ER 325 mg (65 mg 325 mg PO QDAY #30 cap 01/31/17 07/08/18 History iron) capsule,extended release cholecalciferol (vitamin D3) 5,000 5,000 unit PO QDAY #90 cap 07/10/17 07/08/18 Rx unit capsule fluticasone 50 mcg/actuation nasal 1 spray INASL QD PRN #3 g 07/10/17 07/08/18 History spray,suspension sodium bicarbonate 650 mg tablet 1,300 mg PO QDAY #180 tab 07/10/17 07/08/18 Rx levothyroxine 25 mcg tablet 25 mcg PO QDAY #90 tab 04/10/18 07/08/18 Rx colchicine 0.6 mg capsule 0.6 mg PO QDAY #90 cap 04/11/18 07/08/18 Rx allopurinol 300 mg tablet 300 mg PO QDAY #90 tab 05/06/18 07/08/18 Rx doxazosin 2 mg tablet 2 mg PO QDAY #90 tab 05/07/18 07/08/18 Rx amlodipine 2.5 mg tablet 2.5 mg PO QDAY 06/04/18 07/08/18 History tamsulosin 0.4 mg capsule 0.4 mg PO QDAY 06/04/18 07/08/18 History rosuvastatin 40 mg tablet 40 mg PO QDAY #90 tab 06/10/18 07/08/18 Rx ezetimibe 10 mg tablet 10 mg PO QHS #90 tab 06/27/18 07/08/18 Rx indapamide 2.5 mg tablet 5 mg PO QDAY #180 tab 06/27/18 07/08/18 Rx prasugrel 10 mg tablet 10 mg PO QDAY #90 tab 06/27/18 07/08/18 Rx pantoprazole 40 mg tablet,delayed 40 mg PO BID #180 tab 07/02/18 07/08/18 Rx release budesonide-formoterol HFA 80 2 puff INH BID #360 puff 07/07/18 07/08/18 Rx mcg-4.5 mcg/actuation aerosol inhaler Azithromycin [Zithromax] 250 mg PO DAILY #3 tab 07/11/18 Rx Cefdinir Cap [Omnicef Cap] 300 mg PO BID #6 capsule 07/11/18 Rx Follow-up with PCP in 1-2 weeks Condition at discharge was stable for discharge Exam - Vitals Vital Signs: Vital Signs Temperature 98.8 F Temperature Source Oral Pulse Rate [Pulse Oximeter 63 Right] Pulse Rate 66 Respiratory Rate 22 Blood Pressure [Left Arm] 131/67 Blood Pressure 174/87 Pulse Ox 92 Oxygen Flow Rate 2.5 Oxygen Delivery Method Nasal Cannula Height 6 ft Weight 204 lb - General General Appearance: No Acute Distress, Cooperative - Head Head Exam: Normal Inspection - Eye Eye Exam: POSITIVE: Normal Appearance - ENT ENT Exam: POSITIVE: Normal Exam - Neck Neck Exam: Normal Inspection - Respiratory Respiratory Exam: POSITIVE: Clear to Auscultation - Bilaterally - Cardiovascular Cardiovascular Exam: POSITIVE: RRR - GI/Abdominal GI/Abdominal Exam: POSITIVE: Normal Bowel Sounds, Non Tender, Non Distended, No Organomegaly - Rectal Rectal Exam: POSITIVE: Deferred - External Exam: POSITIVE: Deferred - Extremities Extremities Exam: POSITIVE: Normal Inspection - Back Back Exam: POSITIVE: Normal Inspection - Neurological Neurological Exam: POSITIVE: Alert, Oriented x 3, CN II-XII Intact, No Facial Droop, Speech Intact / Clear - Psychiatric Psychiatric Exam: POSITIVE: Normal Affect Patient Problems - Patient Problem List (1) Pneumonia Current Visit: Yes Status: Acute Code(s): J18.9 - Pneumonia, unspecified organism Category: Medical (2) Acute on chronic renal failure Current Visit: Yes Status: Acute Code(s): N17.9 - Acute kidney failure, unspecified; N18.9 - Chronic kidney disease, unspecified Category: Medical (3) Abnormal LFTs Current Visit: Yes Status: Acute Code(s): R94.5 - Abnormal results of liver function studies Category: Medical (4) Essential hypertension Current Visit: No Status: Acute Onset Date: 01/17/12 Comment: with a renovascular component; labile Code(s): I10 - Essential (primary) hypertension Category: Medical (5) Hypothyroidism Current Visit: No Status: Acute Code(s): E03.9 - Hypothyroidism, unspecified Category: Medical (6) Anemia Current Visit: Yes Status: Acute Code(s): D64.9 - Anemia, unspecified Shyanne grace: Medical
--- NOTE | 2018-07-11 11:24 | OT.PROG ---
Progress Note Progress Note: S: Pt. stated he had not yet tried his energy conservation techniques, but was willing to. O: Pt. participated in 30 min skilled OT service for increase in activity tolerance to complete areas of occupations independently. Pt. demonstrated bathing ADL's with SBA for safety. Pt. doffed UE and LE independently. Pt. O2 levels without using O2 recorded 82 O2. After placing 3L of O2 back on the Pt. O2 levels recorded 96. Pt. continued to use 3L of O2 in the shower for safety. Pt. completed rinsing all body parts with soap and water independently while standing in the shower. Pt. tolerated standing for 15 minutes. Pt. donned UE and LE clothing independently. Pt. was then taken down to the therapy gym to work with PT services. A: Pt. decline in O2 levels without using O2 presents a problem for independence in all areas of occupations. Pt. ability to tolerate standing for 15 minutes demonstrates an increase activity tolerance. Pt. ability to shower and dress independently indicates potential for independence in bathing and dressing ADL's. Pt. would benefit from continued OT service to increase activity tolerance for independent completion of all ADL's. P: Continue skilled OT service 2x/day until discharge for increase activity tolerance for independent completion of all ADL's.
[2018-07-11] MEDS: cefTRIAXone Inj 2 GM in Sodium Chloride 0.9% 100 ML IV SCH (11:30)
--- NOTE | 2018-07-11 14:18 | PT.PROG ---
Progress Note Progress Note: S. Patient stated that he is feeling a little better this morning. O. Patient transferred to the wheelchair and was wheeled to the therapy gym where he performed seated long arc quads, marches, heel toe raises, ball squeezes, clam shells, resisted knee flexion, sit to stands all x 10 bilaterally with 2# weight and red thera band, Patient then used the nu-step x 5 minutes and was returned to his room where he was left in his chair with alarm and call light. A. Patient tolerated therapy well, his o2 sats only dropped below 90 2 times during activities, he maintained 94% the majority of the time. Patient continues to struggle with weakness and would benefit from outpatient therapy. P. Continue POC until Discharge.
[2018-07-11 14:31] VITALS: BP 172/70; RESP 22; TEMP 97.3; O2SAT 96
--- NOTE | 2018-07-14 09:09 | OTI REPORT ---
Thank you for the referral of Arthur Belcher. He was seen on 07/10/18 for an occupational therapy inpatient evaluation secondary to weakness. SUBJECTIVE: The patient is a 72-year-old male who is being seen secondary to having concerns with his breathing. He has pneumonia. He reports that he works typically a 40+ hour/week job that has been difficult to do in the last couple of weeks. He did fall once secondary to feeing weak. PAST MEDICAL HISTORY: Past medical history can be found in the patient's medical record. OBJECTIVE FINDINGS: Bed mobility: The patient was able to come from supine to sit independently. He sat edge of bed independently. Range of motion: Upper extremity range of motion is within normal limits. Strength: Upper extremity strength bilaterally is 4+/5. Activities of daily living: The patient was able to dress lower extremities independently. Once standing he needed stand by assist for balance. Oxygen saturation: The patient's oxygen saturation did drop to 83% on three liters of oxygen. We did go over pursed lipped breathing. ASSESSMENT: Problem List: Patient would benefit from energy conservation techniques and breathing techniques Decreased strength Decreased ability to complete ADLs Short-Term Goals: To be met by discharge from inpatient: Patient will learn energy conservation techniques and apply three of them to his daily life. Patient will demonstrate upper extremity strength of 5/5 bilaterally. Patient will demonstrate independence with all functional transfers and higher level reaching tasks. Long-Term Goals: To be met following discharge from inpatient: Patient will return home, demonstrating independence with higher level ADLs and functional activities. TREATMENT PLAN: Patient will be seen B.I.D during the week and one time per day over the weekend as an inpatient to address the above goals and objectives. INITIAL TREATMENT: Treatment today consisted of the initial evaluation followed by the patient performing ADLs while sitting edge of bed. The patient completed a toilet transfer and hygiene activities with stand by assist. The patient's oxygen levels did drop to 83% with simple ADLs. MTDD
== END 2018-07-11 14:57 | disposition home or self-care (01) | DRG 195 ==
LOC: ER 09:28 → MED/SURG 12:59
PROVIDERS: ADMIT Internal Medicine; ATTEND Internal Medicine